=== PATIENT | female | born 1945 | race Caucasian/White ===

== ENCOUNTER 2017-04-02 12:41 | Emergency (ER) | payer OTHER ==
[~2017-04-02 12:41] MED LIST: ASPIRIN81 M1 PO; ATORVASTATIN CA10 MG PO; CARDIZEM C1 PO; COQ-10100 MG PO; FENOFIBRATE160 MG PO; FISH OIL1200 MG PO; FLAXSEED OIL1000 MG PO; MULTIPLE VITAMIN PO; PREMARIN0.9 M1 PO; PRINIVIL5 MG PO; VITAMIN D-31000 UNIT PO
--- NOTE | 2017-04-02 13:46 | DIAGNOSTIC IMAGING REPORT ---
PROCEDURE: XR CHEST 1 VIEW INDICATION: PALPITATIONS TECHNIQUE: Portable AP view 01:19 p.m. COMPARISON: None. FINDINGS: Lungs are clear. Heart and mediastinum are normal. Thorax is normal. No significant interval change IMPRESSION: 1. Negative chest.
--- NOTE | 2017-04-02 15:51 | ED NURSING NOTES ---
Clinical Report - Nurses [facility] [address] [place] [address] 04/02/2017 12:42 Patient: INGRIS DURBIN TRIAGE Triage time 12:48 Apr 02 2017. Chief Complaint: (rapid heart rate). Alert. No acute distress. ANATOLY COMA SCORE: Anatoly Coma Scale: 15- eyes open spontaneously (4); best verbal response- oriented x 4 (5); best motor response- obeys commands (6). --12:52 Leida Smallwood R.N. 12:48 04/02/17. BP: 155/72. HR: 142. RR: 12. O2 saturation: 100%. Temp: 97.4 F. Pain level now: 0/10. --12:52 Leida Smallwood R.N. Weight: 99.7 kg stated. Height/Length: 70 inches Per Patient. BMI: 31.5. --12:51 Leida Smallwood R.N. Medications Aspirin Childrens Oral (Tablet Chewable 81 mg) 1 tablet, BID. Atorvastatin Calcium Oral (Tablet 10 mg) 1 tablet, daily. Co Q 10 Oral (Capsule 100 mg) 1 capsule, daily. Fenofibrate Oral (Tablet 160 mg) 1 tablet, daily as needed. Fish Oil Oral (Capsule Delayed Release 1200 mg) 1 capsule, BID. Flaxseed Oil Oral 1400 mg , daily. Lisinopril Oral 10 mg, daily. Multiple Vitamin Oral, daily. Premarin Vaginal 0.150, daily. Vitamin D Oral 4000 mg, BID. --12:49 Leida Smallwood R.N. Cartia XT Oral (Capsule Extended Release 24 Hour 180 mg) 1 capsule, daily. --13:13 Leida Smallwood R.N. The following entry was struck and corrected by Ledia Smallwood R.N., 13:18 (04/02/17) Reason for correction - other(correction). <<STRICKEN ENTRY-- Vitamin D Oral. --12:49 Leida Smallwood R.N. --END STRIKE>> The following entry was struck and corrected by Leida Smallwood R.N., 13:17 (04/02/17) Reason for correction - other(correction). <<[facility] ENTRY-- Premarin Vaginal. --12:49 Leida Smallwood R.N. --END STRIKE>> The following entry was struck and corrected by Leida Smallwood R.N., 13:16 (04/02/17) Reason for correction - other(correction). <<[facility] ENTRY-- Multiple Vitamin Oral. --12:49 Leida Smallwood R.N. --END STRIKE>> The following entry was struck and corrected by Leida Smallwood R.N., 13:16 (04/02/17) Reason for correction - other(correction). <<[facility] ENTRY-- Lisinopril Oral. --12:49 Leida Smallwood R.N. --END STRIKE>> The following entry was struck and corrected by Leida Smallwood R.N., 13:16 (04/02/17) Reason for correction - other(correction). <<[facility] ENTRY-- Flaxseed Oil Oral. --12:49 Leida Smallwood R.N. --END STRIKE>> The following entry was struck and corrected by Leida Smallwood R.N., 13:16 (04/02/17) Reason for correction - other(correction). <<[facility] ENTRY-- Fish Oil Oral. --12:49 Leida Smallwood R.NNaina --END STRIKE>> The following entry was struck and corrected by Leida Smallwood R.N., 13:15 (04/02/17) Reason for correction - other(correction). <<[facility] ENTRY-- Fenofibrate Oral. --12:49 Leida Smallwood R.NNaina --END STRIKE>> The following entry was struck and corrected by Leida Smallwood R.N., 13:15 (04/02/17) Reason for correction - other(correction). <<[facility] ENTRY-- Co Q 10 Oral. --12:49 Leida Smallwood R.N. --END STRIKE>> The following entry was struck and corrected by Leida Smallwood R.N., 13:15 (04/02/17) Reason for correction - other(correction). <<[facility] ENTRY-- Cartia XT Oral. --13:13 Leida Smallwood R.N. --END STRIKE>> The following entry was struck and corrected by Leida Smallwood R.N., 13:14 (04/02/17) Reason for correction - other(correction). <<[facility] ENTRY-- Atorvastatin Calcium Oral. --12:49 Leida Smallwood R.N. --END STRIKE>> The following entry was struck and corrected by Leida Smallwood R.N., 13:14 (04/02/17) Reason for correction - other(correction). <<[facility] ENTRY-- Aspirin Childrens Oral. --12:49 Leida Smallwood R.N. --END STRIKE>>. Allergies None. --12:49 Leida Smallwood R.N. History Arrived by private vehicle. Historian: patient. Accompanied by family. This started just prior to arrival. She has had difficulty breathing. 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 SOCIAL HX: Never smoker. No alcohol use or drug use. No infectious disease exposure. SELF HARM ASSESSMENT: A self harm assessment was performed. The patient answered "no" to the question "Do you have thoughts of harming or killing yourself?". FALL RISK ASSESSMENT: Fall risk assessment completed. No fall risk identified. NUTRITIONAL RISK ASSESSMENT: The nutritional risk assessment revealed no deficiencies. FUNCTIONAL ASSESSMENT: Functional assessment: no impairments noted. LEARNING NEEDS ASSESSMENT: The learning needs assessment revealed no barriers. ABUSE ASSESSMENT: Abuse assessment: The patient was asked "Do you feel safe in your home?". SKIN INTEGRITY ASSESSMENT: Skin integrity risk assessment completed. No skin integrity risk identified. --12:52 Leida Smallwood R.N. PROBLEMS: Atrial Flutter. Hypercholesterolemia. Hypertension. --12:49 Leida Smallwood R.N. ADDITIONAL SURGERIES: Appendectomy. Carpal Tunnel Surgery. Shoulder Surgery. Tonsillectomy. --12:49 Leida Smallwood R.N. PHYSICAL ASSESSMENT GENERAL / NEURO / PSYCH: Alert. Oriented X 4. Appears anxious. RESPIRATORY: Mild respiratory distress. The patient can speak in full sentences. Chest nontender. CVS: Cardiac rhythm: sinus tachycardia. Capillary refill less than 2 seconds. GI / : Abdomen soft and nontender. SKIN: Skin is warm and dry. --12:52 Leida Smallwood R.N. NURSING PROGRESS NOTES 12:53 04/02/2017 Site #1 started via IV in the left hand with an 20g angiocath, with aseptic technique and good blood return; one attempt. Blood drawn: rainbow set. Labeled in the presence of the patient and sent to the lab. Saline lock flushed with 10 mL saline. --12:53 Leida Smallwood R.N. Oxygen administered. EKG time: (1255 PM). EKG was performed by a tech and shown to the PRINT LINE FEEDER. Head of bed elevated. Patient identifiers checked. Call light placed in reach. Side rails up x 2. Bed placed in lowest position. Brakes of bed on. --12:54 Leida Smallwood R.N. 12:54 04/02/17. BP: 135/83. HR: 145. RR: 20. O2 saturation: 100%. --12:55 Leida Smallwood R.N. 13:01 04/02/2017 Started bag #1 1000 mL IV Fluids IV NS (Saline); at 1000 mL/hr over 1 hour(s) via site #1 via IV pump. Allergies verified and confirmed 5 rights. IV patency established. IV site checked: no pain, redness, or swelling. IV flushed thoroughly pre- and post-medication administration. --13:06 Leida Smallwood R.N. 13:05 04/02/2017 Cardizem IVP 25 mg given over 3 minute(s) via site #1. Allergies verified and confirmed 5 rights. IV patency established. IV site checked: no pain, redness, or swelling. IV flushed thoroughly pre- and post-medication administration. --13:05 Leida Smallwood R.N. EKG time: (1310 13:Apr 02 2017). EKG was performed by a tech and shown to the PRINT LINE FEEDER. --13:08 Leida Smallwood R.N. 13:07 04/02/17. BP: 121/62. HR: 80. RR: 16. O2 saturation: 100%. --13:08 Leida Smallwood R.N. 13:36 04/02/17. BP: 123/55. HR: 77. RR: 19. O2 saturation: 99%. Pain level now: 0/10. --13:37 Leida Smallwood R.N. The patient is calm and resting quietly. Overall patient status is improved- she states feels better. --13:37 Leida Smallwood R.N. 14:07 04/02/2017 IV Fluids IV NS Discontinued: bag #1 infused. Total amount infused: 1000 mL. IV patency established. IV site checked: no pain, redness, or swelling. IV flushed thoroughly. --14:07 Leida Smallwood R.N. 14:08 04/02/2017 Aspirin PO 325 mg given. Allergies verified and confirmed 5 rights. --14:08 Leida Smallwood R.N. 14:06 04/02/17. BP: 124/56. HR: 97. RR: 20. O2 saturation: 100%. Pain level now: 0/10. --14:09 Leida Smallwood R.N. The patient is calm and resting quietly. Overall patient status is improved- she states feels better. --14:58 Leida Smallwood R.N. 14:58 04/02/17. BP: 130/57. HR: 71. RR: 22. O2 saturation: 99%. Pain level now: 0/10. --14:58 Leida Smallwood R.N. 15:15 04/02/17. BP: 140/66. HR: 73. RR: 18. O2 saturation: 100%. Pain level now: 0/10. --15:15 Leida Smallwood R.N. DISPOSITION / DISCHARGE Condition at departure: improved. No learning barriers present. Reviewed medication(s) side effects, precautions, dosing and course information. Prescription(s) given to the patient. Reviewed referral to a certified nurse operating room for followup. Patient verbalized understanding. Written instructions provided in Uzbek. The patient was discharged home and accompanied by spouse. She left the Emergency Department ambulatory and via private vehicle. Spouse driving. FALL RISK ASSESSMENT: Fall risk assessment completed. No fall risk identified. --16:02 Leida Smallwood R.N. 15:59 04/02/17. BP: 125/61. HR: 83. RR: 18. O2 saturation: 99%. Pain level now: 010. --16:02 Leida Smallwodo R.N. Departure time: 16:Apr 02 2017. --16:06 Leida Smallwood R.N. Locked/Released at 04/02/2017 21:02 by Leida Smallwood R.N.
--- NOTE | 2017-04-02 15:51 | ED ORDER SUMMARY ---
..... Patient: INGRIS DURBIN OrderSheet [facility] VisitID: [id number] [address] [place] [address] 72y, F Registration Date/Time: 04/02/2017 ORDER SHEET Weight: 99.7 kg (stated) Allergies: None GENERAL ORDERS: Finishing Range Supervisor (Continuous) (12:58 04/02/2017 HBivens A.R.N.P.) (13:09 KKnebel R.N.) Chest 1V Urgent (12:58 04/02/2017 HBivens A.R.N.P.) (Ack 13:02 [place]) (13:31 Hitesh) CBC w Diff Urgent (12:58 04/02/2017 HBivens A.R.N.P.) (Ack 13:02 RKaruga) (13:09 KKnebel R.N.) CMP Urgent (12:58 04/02/2017 HBivens A.R.N.P.) (Ack 13:02 RKaruga) (13:09 KKnebel R.N.) CPK Urgent (12:58 04/02/2017 HBivens A.R.N.P.) (Ack 13:02 RKaruga) (13:09 KKnebel R.N.) Troponin-I Urgent (12:58 04/02/2017 HBivens A.R.N.P.) (Ack 13:02 RKaruga) (13:09 KKnebel R.N.) Oxygen (2 L/min) (NC) (12:58 04/02/2017 HBivens A.R.N.P.) (13:09 KKnebel R.N.) EKG - ER Stat (12:58 04/02/2017 HBivens A.R.N.P.) (13:01 RKaruga) EKG - ER Stat (12:58 04/02/2017 HBivens A.R.N.P.) (13:01 RKaruga) PTT Urgent (13:11 04/02/2017 HBivens A.R.N.P.) (Ack 13:25 DIAMONDaruga) (14:05 MWinterer R.N.) PT with INR Urgent (13:11 04/02/2017 HBivens A.R.N.P.) ([facility]ck 13:[facility] (14:05 MWinterer R.N.) EKG - ER Stat (13:41 04/02/2017 HBivens A.R.N.P.) (Ack 13:56 [facility] (14:05 MWinterer R.N.) MEDICATION ORDERS: Aspirin PO 325 mg (Do not crush or chew, NOW) (13:11 04/02/2017 HBivens A.R.N.P.) (14:08 KKnebel R.N.) IV FLUIDS: IV NS : initial bolus 1000 mL (1000 mL/hr), then none - (NOW) (12:57 04/02/2017 HBivens A.R.N.P.) (13:06 KKnebel R.N.) Cardizem IV 25 mg (HIGH ALERT MEDICATION, NOW) (12:58 04/02/2017 HBivens A.R.N.P.) (13:05 KKnebel R.N.) IV Saline Lock (12:58 04/02/2017 HBivens A.R.N.P.) (13:07 KKnebel R.N.) ORDER SHEET NOTES: [Electronically signed by Elba Plata ANainaR.N.P. (17:33 04/02/2017)] [Electronically signed by Leida Smallwood R.N. (21:02 04/02/2017)] [Electronically locked/signed by Leida Smallwood R.N. (21:02 04/02/2017)]
--- NOTE | 2017-04-02 15:51 | ED NURSING NOTES ---
Clinical Report - Nurses [facility] [address] [place] [address] 04/02/2017 12:42 Patient: INGRIS DURBIN TRIAGE Triage time 12:48 Apr 02 2017. Chief Complaint: (rapid heart rate). Alert. No acute distress. ANATOLY COMA SCORE: Anatoly Coma Scale: 15- eyes open spontaneously (4); best verbal response- oriented x 4 (5); best motor response- obeys commands (6). --12:52 Leida Smallwood R.N. 12:48 04/02/17. BP: 155/72. HR: 142. RR: 12. O2 saturation: 100%. Temp: 97.4 F. Pain level now: 0/10. --12:52 Leida Smallwood R.N. Weight: 99.7 kg stated. Height/Length: 70 inches Per Patient. BMI: 31.5. --12:51 Leida Smallwood R.N. Medications Aspirin Childrens Oral (Tablet Chewable 81 mg) 1 tablet, BID. Atorvastatin Calcium Oral (Tablet 10 mg) 1 tablet, daily. Co Q 10 Oral (Capsule 100 mg) 1 capsule, daily. Fenofibrate Oral (Tablet 160 mg) 1 tablet, daily as needed. Fish Oil Oral (Capsule Delayed Release 1200 mg) 1 capsule, BID. Flaxseed Oil Oral 1400 mg , daily. Lisinopril Oral 10 mg, daily. Multiple Vitamin Oral, daily. Premarin Vaginal 0.150, daily. Vitamin D Oral 4000 mg, BID. --12:49 Leida Smallwood R.N. Cartia XT Oral (Capsule Extended Release 24 Hour 180 mg) 1 capsule, daily. --13:13 Leida Smallwood R.N. The following entry was struck and corrected by Leida Smallwood R.N., 13:18 (04/02/17) Reason for correction - other(correction). <<STRICKEN ENTRY-- Vitamin D Oral. --12:49 Leida Smallwood R.N. --END STRIKE>> The following entry was struck and corrected by Leida Smallwood R.N., 13:17 (04/02/17) Reason for correction - other(correction). <<[facility] ENTRY-- Premarin Vaginal. --12:49 Leida Smallwood R.N. --END STRIKE>> The following entry was struck and corrected by Leida Smallwood R.N., 13:16 (04/02/17) Reason for correction - other(correction). <<[facility] ENTRY-- Multiple Vitamin Oral. --12:49 Leida Smallwood R.N. --END STRIKE>> The following entry was struck and corrected by Leida Smallwood R.N., 13:16 (04/02/17) Reason for correction - other(correction). <<[facility] ENTRY-- Lisinopril Oral. --12:49 Leida Smallwood R.N. --END STRIKE>> The following entry was struck and corrected by Leida Smallwood R.N., 13:16 (04/02/17) Reason for correction - other(correction). <<[facility] ENTRY-- Flaxseed Oil Oral. --12:49 Leida Smallwood R.N. --END STRIKE>> The following entry was struck and corrected by Leida Smallwood R.N., 13:16 (04/02/17) Reason for correction - other(correction). <<[facility] ENTRY-- Fish Oil Oral. --12:49 Leida Smallwood R.NNaina --END STRIKE>> The following entry was struck and corrected by Leida Smallwood R.N., 13:15 (04/02/17) Reason for correction - other(correction). <<[facility] ENTRY-- Fenofibrate Oral. --12:49 Leida Smallwood R.NNaina --END STRIKE>> The following entry was struck and corrected by Leida Smallwood R.N., 13:15 (04/02/17) Reason for correction - other(correction). <<[facility] ENTRY-- Co Q 10 Oral. --12:49 Leida Smallwood R.N. --END STRIKE>> The following entry was struck and corrected by Leida Smallwood R.N., 13:15 (04/02/17) Reason for correction - other(correction). <<[facility] ENTRY-- Cartia XT Oral. --13:13 Leida Smallwood R.N. --END STRIKE>> The following entry was struck and corrected by Leida Smallwood R.N., 13:14 (04/02/17) Reason for correction - other(correction). <<[facility] ENTRY-- Atorvastatin Calcium Oral. --12:49 Leida Smallwood R.N. --END STRIKE>> The following entry was struck and corrected by Leida Smallwood R.N., 13:14 (04/02/17) Reason for correction - other(correction). <<[facility] ENTRY-- Aspirin Childrens Oral. --12:49 Leida Smallwood R.N. --END STRIKE>>. Allergies None. --12:49 Leida Smallwood R.N. History Arrived by private vehicle. Historian: patient. Accompanied by family. This started just prior to arrival. She has had difficulty breathing. 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 SOCIAL HX: Never smoker. No alcohol use or drug use. No infectious disease exposure. SELF HARM ASSESSMENT: A self harm assessment was performed. The patient answered "no" to the question "Do you have thoughts of harming or killing yourself?". FALL RISK ASSESSMENT: Fall risk assessment completed. No fall risk identified. NUTRITIONAL RISK ASSESSMENT: The nutritional risk assessment revealed no deficiencies. FUNCTIONAL ASSESSMENT: Functional assessment: no impairments noted. LEARNING NEEDS ASSESSMENT: The learning needs assessment revealed no barriers. ABUSE ASSESSMENT: Abuse assessment: The patient was asked "Do you feel safe in your home?". SKIN INTEGRITY ASSESSMENT: Skin integrity risk assessment completed. No skin integrity risk identified. --12:52 Leida Smallwood R.N. PROBLEMS: Atrial Flutter. Hypercholesterolemia. Hypertension. --12:49 Leida Smallwood R.N. ADDITIONAL SURGERIES: Appendectomy. Carpal Tunnel Surgery. Shoulder Surgery. Tonsillectomy. --12:49 Leida Smallwood R.N. PHYSICAL ASSESSMENT GENERAL / NEURO / PSYCH: Alert. Oriented X 4. Appears anxious. RESPIRATORY: Mild respiratory distress. The patient can speak in full sentences. Chest nontender. CVS: Cardiac rhythm: sinus tachycardia. Capillary refill less than 2 seconds. GI / : Abdomen soft and nontender. SKIN: Skin is warm and dry. --12:52 Leida Smallwood R.N. NURSING PROGRESS NOTES 12:53 04/02/2017 Site #1 started via IV in the left hand with an 20g angiocath, with aseptic technique and good blood return; one attempt. Blood drawn: rainbow set. Labeled in the presence of the patient and sent to the lab. Saline lock flushed with 10 mL saline. --12:53 Leida Smallwood R.N. Oxygen administered. EKG time: (1255 PM). EKG was performed by a tech and shown to the FIRE APPARATUS ENGINEER. Head of bed elevated. Patient identifiers checked. Call light placed in reach. Side rails up x 2. Bed placed in lowest position. Brakes of bed on. --12:54 Leida Smallwood R.N. 12:54 04/02/17. BP: 135/83. HR: 145. RR: 20. O2 saturation: 100%. --12:55 Leida Smallwood R.N. 13:01 04/02/2017 Started bag #1 1000 mL IV Fluids IV NS (Saline); at 1000 mL/hr over 1 hour(s) via site #1 via IV pump. Allergies verified and confirmed 5 rights. IV patency established. IV site checked: no pain, redness, or swelling. IV flushed thoroughly pre- and post-medication administration. --13:06 Leida Smallwood R.N. 13:05 04/02/2017 Cardizem IVP 25 mg given over 3 minute(s) via site #1. Allergies verified and confirmed 5 rights. IV patency established. IV site checked: no pain, redness, or swelling. IV flushed thoroughly pre- and post-medication administration. --13:05 Leida Smallwood R.N. EKG time: (1310 13:Apr 02 2017). EKG was performed by a tech and shown to the FIRE APPARATUS ENGINEER. --13:08 Leida Smallwood R.N. 13:07 04/02/17. BP: 121/62. HR: 80. RR: 16. O2 saturation: 100%. --13:08 Leida Smallwood R.N. 13:36 04/02/17. BP: 123/55. HR: 77. RR: 19. O2 saturation: 99%. Pain level now: 0/10. --13:37 Leida Smallwood R.N. The patient is calm and resting quietly. Overall patient status is improved- she states feels better. --13:37 Leida Smallwood R.N. 14:07 04/02/2017 IV Fluids IV NS Discontinued: bag #1 infused. Total amount infused: 1000 mL. IV patency established. IV site checked: no pain, redness, or swelling. IV flushed thoroughly. --14:07 Leida Smallwood R.N. 14:08 04/02/2017 Aspirin PO 325 mg given. Allergies verified and confirmed 5 rights. --14:08 Leida Smallwood R.N. 14:06 04/02/17. BP: 124/56. HR: 97. RR: 20. O2 saturation: 100%. Pain level now: 0/10. --14:09 Leida Smallwood R.N. The patient is calm and resting quietly. Overall patient status is improved- she states feels better. --14:58 Leida Smallwood R.N. 14:58 04/02/17. BP: 130/57. HR: 71. RR: 22. O2 saturation: 99%. Pain level now: 0/10. --14:58 Leida Smallwood R.N. 15:15 04/02/17. BP: 140/66. HR: 73. RR: 18. O2 saturation: 100%. Pain level now: 0/10. --15:15 Leida Smallwood R.N. DISPOSITION / DISCHARGE Condition at departure: improved. No learning barriers present. Reviewed medication(s) side effects, precautions, dosing and course information. Prescription(s) given to the patient. Reviewed referral to a amusement park entertainer for followup. Patient verbalized understanding. Written instructions provided in Yi. The patient was discharged home and accompanied by spouse. She left the Emergency Department ambulatory and via private vehicle. Spouse driving. FALL RISK ASSESSMENT: Fall risk assessment completed. No fall risk identified. --16:02 Leida Smallwood R.N. 15:59 04/02/17. BP: 125/61. HR: 83. RR: 18. O2 saturation: 99%. Pain level now: 010. --16:02 Leida Smallwood R.N. Departure time: 16:Apr 02 2017. --16:06 Leida Smallwood R.N. Locked/Released at 04/02/2017 21:02 by Leida Smallwood R.N.
--- NOTE | 2017-04-02 15:51 | ED CLINICAL REPORT ---
Clinical Report - Physicians/Mid Levels [facility] [address] [place] [address] 04/02/2017 12:42 Patient: INGRIS DURBIN Time Seen: 1248; upon arrival, initial patient contact, initial documentation, patient care assumed. Arrived- By private vehicle. Historian- patient. HISTORY OF PRESENT ILLNESS Chief Complaint: PALPITATIONS. Modifying factors. Not worsened by anything. Not relieved by anything. It is described as a fast and pounding heart beat and missing beats. This started just prior to arrival and is still present. (sitting in car). Onset during rest. It was abrupt in onset and has been constant. No chest pain or discomfort, sweating episodes, fainting episodes or dizziness. No tingling or muscle spasms. She has had difficulty breathing. ( pcp Jennifer Covington in [facility], Customer Service Leader at [place]). 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 Similar symptoms previously: Once, worse. ( had first episode back in Sep, [facility] , f/u with recorder helper gravity prospecting, in Nov, Dr Hauser, placed on cartia, had discussion whether to do procedure, possible ablation, did not want to do ablation and didn't like what said, so saw 2nd recorder helper gravity prospecting, Dr Fritz, has not had any more episodes since, occasional missed beat, sometimes at night, but not this). Recent medical care: Not recently seen/assessed. REVIEW OF SYSTEMS No orthopnea or calf pain. All systems otherwise negative, except as recorded above. PAST HISTORY See nurses notes. PROBLEMS: Atrial Flutter. Hypercholesterolemia. Hypertension. --12:49 Leida Smallwood R.N. ADDITIONAL SURGERIES: Appendectomy. Carpal Tunnel Surgery. Shoulder Surgery. Tonsillectomy. --12:49 Leida Smallwood R.N. SOCIAL HISTORY Never smoker. No alcohol use or drug use. No recent travel. Is a local resident. She lives with spouse. FAMILY HISTORY Negative. ADDITIONAL NOTES The nursing notes have been reviewed with agreement regarding the chief complaint, HPI, ROS, PMH and patient medications and allergies. PHYSICAL EXAM Vital Signs: 04/02/2017 12:48 BP: 155/72. HR: 142. RR: 12. O2 saturation: 100%. Temp: 97.4 F. Pain level now: 0/10. Have been reviewed as abnormal and appear to be correct. Blood pressure normal. Tachycardic. Respiratory rate normal. Temperature normal. Oxygen saturation normal. Appearance: Alert. Oriented X3. No acute distress. Eyes: Pupils equal, round and reactive to light. Eyes normal inspection. Neck: Normal inspection. Neck supple. CVS: Heart rate / rhythm abnormal. Tachycardia. Abnormal rhythm, which is tachycardic and regular (ventricular rate = 142). Heart sounds abnormal. Pulses normal. Respiratory: No respiratory distress. Breath sounds normal. Chest nontender. Abdomen: Mildly obese. Back: Normal external inspection. Skin: Skin warm and dry. Normal skin color. No rash. Normal skin turgor. Extremities: Extremities exhibit normal ROM. No lower extremity edema. Neuro: Oriented X 3. No motor deficit. No sensory deficit. LABS, X-RAYS, AND EKG EKG: EKG time: (1255). No acute ischemia. Atrial flutter with 2 to 1 conduction (atrial rate). Tachycardia (141). Normal EKG. The study has been interpreted contemporaneously by me (reviewed by dr escobedo). The EKG appears to be a good tracing. Interpretation time: 1255. EKG #2: Performed. EKG time: (1310). No acute process. No acute ischemia. Normal EKG. Rate: 81. The study has been interpreted contemporaneously by me (and reviewed by dr escobedo). The EKG appears to be a good tracing. Interpretation time: 1310. EKG #3: EKG time: (1356). No acute process. No acute ischemia. Rate: 83. First-degree heart block and unidentified rhythm present. The study has been interpreted contemporaneously by me (and Dr Escobedo). The EKG appears to be a good tracing. Interpretation time: 1356. Chest X-ray: Normal Chest X-Ray. (IMPRESSION: 1. Negative chest. Electronically Final signed by:Mark Chung MD 04/02/2017 1:46:45 PM). The X-rays were interpreted by the radiologist and contemporaneously by me. Laboratory Tests: CBC w Diff: (DAWIT: 04/02/2017 12:50) ( [facility] 04/02/2017 13:06) Final results Test Result Flag Units (Reference) WHITE BLOOD COUNT 5.7 K/uL (4.5-11.5) RED BLOOD COUNT 4.27 M/uL (4.00-5.20) HEMOGLOBIN 13.5 gm/dL (12.0-16.0) HEMATOCRIT 38.3 % (36.0-46.0) MEAN CELL VOLUME 90 fL (80-100) MEAN CORPUSCULAR HGB 32 pg (26-34) MEAN CORPUSCULAR HGB CONC 35 g/dL (31-37) RED CELL DISTRIBUTION WIDTH 12.4 % (11.6-14.8) PLATELET COUNT 240 K/uL (150-400) NEUTROPHIL % 66.5 % (50-75) LYMPH % 22.8 L % (25-40) MONO % 8.7 % (3-14) EOSINOPHIL % 1.7 % (0-4) BASOPHIL % 0.3 % (0-2) PT with INR: (DAWIT: 04/02/2017 12:50) ( [facility] 04/02/2017 13:42) Final results Test Result Flag Units (Reference) INR 1.0 (0.8-1.2) Low Intensity Therapy: INR 1.5-2.0 PT range 18.5-23.1Mod.Intensity Therapy: INR 2.0-3.0 PT range 23.1-31.5High Intensity Therapy: INR 2.5-3.5 PT range 27.4-35.5High Intensity Therapy 2: INR 3.0-4.0 PT range 31.5-39.3 APTT 30 SECONDS (24-34) CMP: (DAWIT: 04/02/2017 12:50) ( [facility] 04/02/2017 13:23) Final results Test Result Flag Units (Reference) GLUCOSE 105 mg/dL (70-110) BUN 26 H mg/dL (7-18) CREATININE 1.5 H mg/dL (0.6-1.3) Estimated GFR 36.49 mL/min Estimated GFR- 44.22 mL/min Note: Persistent reduction over 3 months in eGFR<60 mL/min/1.73 m2 defines CKD. Patients with eGFR values>=60 mL/min/1.73 m2 may also have CKD if evidence ofpersistent proteinuria. Additional information may be foundat www.kidney.org. SODIUM 141 mmol/L (136-145) POTASSIUM 4.0 mmol/L (3.5-5.1) CHLORIDE 103 mmol/L (98-107) CARBON DIOXIDE 23 mmol/L (21-32) CALCIUM 9.5 mg/dL (8.5-10.1) TOTAL PROTEIN 7.7 g/dL (6.4-8.2) ALBUMIN 4.0 g/dL (3.3-5.0) BILIRUBIN, TOTAL 0.5 mg/dL (0.0-1.0) ALKALINE PHOSPHATASE 64 U/L (46-116) AST (SGOT) 23 U/L (15-37) ALT (SGPT) 33 U/L (12-78) CPK 88 U/L (24-260) TROPONIN I 0.06 ng/mL (0.00-1.5) TROPONIN REFERENCE RANGE:<0.1 NEGATIVE0.1-1.5 INDETERMINANT>1.5 POSITIVE . PROGRESS AND PROCEDURES Peripheral IV Placement: Performed by me. IV placed in the right antecubital space with an 18g angiocath with aseptic technique and good blood return; one attempt. Saline lock flushed with 5 mL saline. Course of Care: 13:41 04/02/17. nurse reporting hr is 77, but rhythm looks different to her on monitor, another ekg ordered 1345. pt resting quietly, nad, nsr on monitor, vs stable 1430. Spoke to Customer Service Leader Dr Davenport at [facility], discussed pt's case with her, she asked us to fax her the ekgs, she would review and get back with us Asked observation nurse to fax the ekgs 15:15 04/02/17. pt walked around dept by [employer], no cp, no sob, no trouble breathing, pt back on cardiac catheterization technician, nsr seen so far 1515. Spoke to Dr Hauser, she reviewed the ekg's, agreed with my assessment, was in 2:1 aflutter, converted to nsr and occasional pvc, ok, to dc home, wants to see pt in her office tuesday, wants to increase the cartia from 180mg qd to 240mg qd, increase the asa to 325mg qd, pt to check with her insurance company re which blood thinner they will pay for had long discussion with pt afterwards to go over Dr Hauser's dc plan, pt still reluctant re ablation procedure, explained aflutter that does not convert ends up being paced and can be fatal, also risk of blood clot from heart being in irregular rhythm, pt encouraged to think everything over and call [employer]. 04/02/2017 13:36 BP: 123/55. HR: 77. RR: 19. O2 saturation: 99%. Pain level now: 0/10. Vital Signs: have been reviewed as normal and appear to be correct. Critical care performed (60 minutes). Time includes: direct patient care, patient reassessment, interpretation of data (laboratory data, pulse oximetry, chest xrays and prior electrocardiograms), review of patient's medical records, medical consultation and documentation of patient care- see progress notes. Procedures included in critical care time: peripheral IV placement. Patient counseled in person regarding the patient's stable condition, test results, diagnosis and need for additional testing. Differential Diagnosis: Other possible considerations: svt, afib, aflutter, substance abuse, mi. Above considerations are based on history, physical exam, reassessment, laboratory data, X-Ray data and EKG. Differential diagnosis was discussed with patient. Disposition: Discharged home in good and improved condition (15:51). Condition: good and stable. CLINICAL IMPRESSION Chronic atrial flutter. The patient does not have one or more high risk factors and/or two or more moderate risk factors for thromboembolism. The patient is prescribed warfarin or another FDA approved anticoagulant. INSTRUCTIONS (increase Aspirin to 325mg daily, as discussed, check with insurance regarding blood thinners Blood thinners: Elaquil 500mg twice daily Xarelto 20mg daily Prudaxa 150mg twice daily). Warnings: GENERAL WARNINGS: Return or contact your physician immediately if your condition worsens or changes unexpectedly, if not improving as expected, or if other problems arise. SPECIFICALLY, return if you develop chest, neck, jaw, shoulder, arm, or back pain, difficulty breathing, a fluttering sensation in your chest, lightheadedness, fainting, excessive fatigue, or sudden sweating. Prescription Medications: Cartia 240mg po #15 1 tablet qd no refills. Understanding of the discharge instructions verbalized by patient. Follow-up with: Anny Hauser MD, Cardiology, , [facility], [address] [place] [address], [facility], [id number] Follow up Tuesday even if well. Call for an appointment. Summary of care provided to patient. (Electronically signed by Elba Plata A.R.N.P. 04/02/2017 17:33)
--- NOTE | 2017-04-02 15:51 | ED ORDER SUMMARY ---
..... Patient: INGRIS DURBIN OrderSheet [facility] VisitID: [id number] [address] [place] [address] 72y, F Registration Date/Time: 04/02/2017 ORDER SHEET Weight: 99.7 kg (stated) Allergies: None GENERAL ORDERS: Brood Station Manager (Continuous) (12:58 04/02/2017 HBivens A.R.N.P.) (13:09 KKnebel R.N.) Chest 1V Urgent (12:58 04/02/2017 HBivens A.R.N.P.) (Ack 13:02 [place]) (13:31 Hitesh) CBC w Diff Urgent (12:58 04/02/2017 HBivens A.R.N.P.) (Ack 13:02 RKaruga) (13:09 KKnebel R.N.) CMP Urgent (12:58 04/02/2017 HBivens A.R.N.P.) (Ack 13:02 RKaruga) (13:09 KKnebel R.N.) CPK Urgent (12:58 04/02/2017 HBivens A.R.N.P.) (Ack 13:02 RKaruga) (13:09 KKnebel R.N.) Troponin-I Urgent (12:58 04/02/2017 HBivens A.R.N.P.) (Ack 13:02 RKaruga) (13:09 KKnebel R.N.) Oxygen (2 L/min) (NC) (12:58 04/02/2017 HBivens A.R.N.P.) (13:09 KKnebel R.N.) EKG - ER Stat (12:58 04/02/2017 HBivens A.R.N.P.) (13:01 RKaruga) EKG - ER Stat (12:58 04/02/2017 HBivens A.R.N.P.) (13:01 RKaruga) PTT Urgent (13:11 04/02/2017 HBivens A.R.N.P.) (Ack 13:25 DIAMONDaruga) (14:05 MWinterer R.N.) PT with INR Urgent (13:11 04/02/2017 HBivens A.R.N.P.) [facility] (14:05 MWinterer R.N.) EKG - ER Stat (13:41 04/02/2017 HBivens A.R.N.P.) (Ack 13:56 [facility]) (14:05 MWinterer R.N.) MEDICATION ORDERS: Aspirin PO 325 mg (Do not crush or chew, NOW) (13:11 04/02/2017 HBivens A.R.N.P.) (14:08 KKnebel R.N.) IV FLUIDS: IV NS : initial bolus 1000 mL (1000 mL/hr), then none - (NOW) (12:57 04/02/2017 HBivens A.R.N.P.) (13:06 KKnebel R.N.) Cardizem IV 25 mg (HIGH ALERT MEDICATION, NOW) (12:58 04/02/2017 HBivens A.R.N.P.) (13:05 KKnebel R.N.) IV Saline Lock (12:58 04/02/2017 HBivens A.R.N.P.) (13:07 KKnebel R.N.) ORDER SHEET NOTES: [Electronically signed by Elba Plata ANainaR.N.P. (17:33 04/02/2017)] [Electronically signed by Leida Smallwood R.N. (21:02 04/02/2017)] [Electronically locked/signed by Leida Smallwood R.N. (21:02 04/02/2017)]
--- NOTE | 2017-04-02 15:51 | ED CLINICAL REPORT ---
Clinical Report - Physicians/Mid Levels [facility] [address] [place] [address] 04/02/2017 12:42 Patient: INGRIS DURBIN Time Seen: 1248; upon arrival, initial patient contact, initial documentation, patient care assumed. Arrived- By private vehicle. Historian- patient. HISTORY OF PRESENT ILLNESS Chief Complaint: PALPITATIONS. Modifying factors. Not worsened by anything. Not relieved by anything. It is described as a fast and pounding heart beat and missing beats. This started just prior to arrival and is still present. (sitting in car). Onset during rest. It was abrupt in onset and has been constant. No chest pain or discomfort, sweating episodes, fainting episodes or dizziness. No tingling or muscle spasms. She has had difficulty breathing. ( pcp Jennifer Covington in [facility], Wheel Molder at [place]). 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 Similar symptoms previously: Once, worse. ( had first episode back in Sep, admitted on [facility] , f/u with carton making machinist, in Nov, Dr Hauser, placed on cartia, had discussion whether to do procedure, possible ablation, did not want to do ablation and didn't like what said, so saw 2nd carton making machinist, Dr Fritz, has not had any more episodes since, occasional missed beat, sometimes at night, but not this). Recent medical care: Not recently seen/assessed. REVIEW OF SYSTEMS No orthopnea or calf pain. All systems otherwise negative, except as recorded above. PAST HISTORY See nurses notes. PROBLEMS: Atrial Flutter. Hypercholesterolemia. Hypertension. --12:49 Leida Smallwood R.N. ADDITIONAL SURGERIES: Appendectomy. Carpal Tunnel Surgery. Shoulder Surgery. Tonsillectomy. --12:49 Leida Smallwood R.N. SOCIAL HISTORY Never smoker. No alcohol use or drug use. No recent travel. Is a local resident. She lives with spouse. FAMILY HISTORY Negative. ADDITIONAL NOTES The nursing notes have been reviewed with agreement regarding the chief complaint, HPI, ROS, PMH and patient medications and allergies. PHYSICAL EXAM Vital Signs: 04/02/2017 12:48 BP: 155/72. HR: 142. RR: 12. O2 saturation: 100%. Temp: 97.4 F. Pain level now: 0/10. Have been reviewed as abnormal and appear to be correct. Blood pressure normal. Tachycardic. Respiratory rate normal. Temperature normal. Oxygen saturation normal. Appearance: Alert. Oriented X3. No acute distress. Eyes: Pupils equal, round and reactive to light. Eyes normal inspection. Neck: Normal inspection. Neck supple. CVS: Heart rate / rhythm abnormal. Tachycardia. Abnormal rhythm, which is tachycardic and regular (ventricular rate = 142). Heart sounds abnormal. Pulses normal. Respiratory: No respiratory distress. Breath sounds normal. Chest nontender. Abdomen: Mildly obese. Back: Normal external inspection. Skin: Skin warm and dry. Normal skin color. No rash. Normal skin turgor. Extremities: Extremities exhibit normal ROM. No lower extremity edema. Neuro: Oriented X 3. No motor deficit. No sensory deficit. LABS, X-RAYS, AND EKG EKG: EKG time: (1255). No acute ischemia. Atrial flutter with 2 to 1 conduction (atrial rate). Tachycardia (141). Normal EKG. The study has been interpreted contemporaneously by me (reviewed by dr escobedo). The EKG appears to be a good tracing. Interpretation time: 1255. EKG #2: Performed. EKG time: (1310). No acute process. No acute ischemia. Normal EKG. Rate: 81. The study has been interpreted contemporaneously by me (and reviewed by dr escobedo). The EKG appears to be a good tracing. Interpretation time: 1310. EKG #3: EKG time: (1356). No acute process. No acute ischemia. Rate: 83. First-degree heart block and unidentified rhythm present. The study has been interpreted contemporaneously by me (and Dr Escobedo). The EKG appears to be a good tracing. Interpretation time: 1356. Chest X-ray: Normal Chest X-Ray. (IMPRESSION: 1. Negative chest. Electronically Final signed by:Mark Chung MD 04/02/2017 1:46:45 PM). The X-rays were interpreted by the radiologist and contemporaneously by me. Laboratory Tests: CBC w Diff: (DAWIT: 04/02/2017 12:50) ( [facility] 04/02/2017 13:06) Final results Test Result Flag Units (Reference) WHITE BLOOD COUNT 5.7 K/uL (4.5-11.5) RED BLOOD COUNT 4.27 M/uL (4.00-5.20) HEMOGLOBIN 13.5 gm/dL (12.0-16.0) HEMATOCRIT 38.3 % (36.0-46.0) MEAN CELL VOLUME 90 fL (80-100) MEAN CORPUSCULAR HGB 32 pg (26-34) MEAN CORPUSCULAR HGB CONC 35 g/dL (31-37) RED CELL DISTRIBUTION WIDTH 12.4 % (11.6-14.8) PLATELET COUNT 240 K/uL (150-400) NEUTROPHIL % 66.5 % (50-75) LYMPH % 22.8 L % (25-40) MONO % 8.7 % (3-14) EOSINOPHIL % 1.7 % (0-4) BASOPHIL % 0.3 % (0-2) PT with INR: (DAWIT: 04/02/2017 12:50) ( [facility] 04/02/2017 13:42) Final results Test Result Flag Units (Reference) INR 1.0 (0.8-1.2) Low Intensity Therapy: INR 1.5-2.0 PT range 18.5-23.1Mod.Intensity Therapy: INR 2.0-3.0 PT range 23.1-31.5High Intensity Therapy: INR 2.5-3.5 PT range 27.4-35.5High Intensity Therapy 2: INR 3.0-4.0 PT range 31.5-39.3 APTT 30 SECONDS (24-34) CMP: (DAWIT: 04/02/2017 12:50) ( [facility] 04/02/2017 13:23) Final results Test Result Flag Units (Reference) GLUCOSE 105 mg/dL (70-110) BUN 26 H mg/dL (7-18) CREATININE 1.5 H mg/dL (0.6-1.3) Estimated GFR 36.49 mL/min Estimated GFR- 44.22 mL/min Note: Persistent reduction over 3 months in eGFR<60 mL/min/1.73 m2 defines CKD. Patients with eGFR values>=60 mL/min/1.73 m2 may also have CKD if evidence ofpersistent proteinuria. Additional information may be foundat www.kidney.org. SODIUM 141 mmol/L (136-145) POTASSIUM 4.0 mmol/L (3.5-5.1) CHLORIDE 103 mmol/L (98-107) CARBON DIOXIDE 23 mmol/L (21-32) CALCIUM 9.5 mg/dL (8.5-10.1) TOTAL PROTEIN 7.7 g/dL (6.4-8.2) ALBUMIN 4.0 g/dL (3.3-5.0) BILIRUBIN, TOTAL 0.5 mg/dL (0.0-1.0) ALKALINE PHOSPHATASE 64 U/L (46-116) AST (SGOT) 23 U/L (15-37) ALT (SGPT) 33 U/L (12-78) CPK 88 U/L (24-260) TROPONIN I 0.06 ng/mL (0.00-1.5) TROPONIN REFERENCE RANGE:<0.1 NEGATIVE0.1-1.5 INDETERMINANT>1.5 POSITIVE . PROGRESS AND PROCEDURES Peripheral IV Placement: Performed by me. IV placed in the right antecubital space with an 18g angiocath with aseptic technique and good blood return; one attempt. Saline lock flushed with 5 mL saline. Course of Care: 13:41 04/02/17. nurse reporting hr is 77, but rhythm looks different to her on monitor, another ekg ordered 1345. pt resting quietly, nad, nsr on monitor, vs stable 1430. Spoke to Wheel Molder Dr Davenport at [facility], discussed pt's case with her, she asked us to fax her the ekgs, she would review and get back with us Asked tip bander to fax the ekgs 15:15 04/02/17. pt walked around dept by [employer], no cp, no sob, no trouble breathing, pt back on case monitor, nsr seen so far 1515. Spoke to Dr Hauser, she reviewed the ekg's, agreed with my assessment, was in 2:1 aflutter, converted to nsr and occasional pvc, ok, to dc home, wants to see pt in her office tuesday, wants to increase the cartia from 180mg qd to 240mg qd, increase the asa to 325mg qd, pt to check with her insurance company re which blood thinner they will pay for had long discussion with pt afterwards to go over Dr Hauser's dc plan, pt still reluctant re ablation procedure, explained aflutter that does not convert ends up being paced and can be fatal, also risk of blood clot from heart being in irregular rhythm, pt encouraged to think everything over and call [employer]. 04/02/2017 13:36 BP: 123/55. HR: 77. RR: 19. O2 saturation: 99%. Pain level now: 0/10. Vital Signs: have been reviewed as normal and appear to be correct. Critical care performed (60 minutes). Time includes: direct patient care, patient reassessment, interpretation of data (laboratory data, pulse oximetry, chest xrays and prior electrocardiograms), review of patient's medical records, medical consultation and documentation of patient care- see progress notes. Procedures included in critical care time: peripheral IV placement. Patient counseled in person regarding the patient's stable condition, test results, diagnosis and need for additional testing. Differential Diagnosis: Other possible considerations: svt, afib, aflutter, substance abuse, mi. Above considerations are based on history, physical exam, reassessment, laboratory data, X-Ray data and EKG. Differential diagnosis was discussed with patient. Disposition: Discharged home in good and improved condition (15:51). Condition: good and stable. CLINICAL IMPRESSION Chronic atrial flutter. The patient does not have one or more high risk factors and/or two or more moderate risk factors for thromboembolism. The patient is prescribed warfarin or another FDA approved anticoagulant. INSTRUCTIONS (increase Aspirin to 325mg daily, as discussed, check with insurance regarding blood thinners Blood thinners: Elaquil 500mg twice daily Xarelto 20mg daily Prudaxa 150mg twice daily). Warnings: GENERAL WARNINGS: Return or contact your physician immediately if your condition worsens or changes unexpectedly, if not improving as expected, or if other problems arise. SPECIFICALLY, return if you develop chest, neck, jaw, shoulder, arm, or back pain, difficulty breathing, a fluttering sensation in your chest, lightheadedness, fainting, excessive fatigue, or sudden sweating. Prescription Medications: Cartia 240mg po #15 1 tablet qd no refills. Understanding of the discharge instructions verbalized by patient. Follow-up with: Anny Hauser MD, Cardiology, , [facility] - [facility], [address] [place] [address], [facility], [id number] Follow up Tuesday even if well. Call for an appointment. Summary of care provided to patient. (Electronically signed by Elba Plata A.R.N.P. 04/02/2017 17:33)
--- NOTE | 2017-04-02 21:03 | ED DISCHARGE INSTRUCTIONS ---
Patient: INGRIS DURBIN General Instructions [facility] VisitID: [id number] [address] [place] [address] 72y, F Registration Date/Time: 04/02/2017 Chronic atrial flutter. The patient does not have one or more high risk factors and/or two or more moderate risk factors for thromboembolism. The patient is prescribed warfarin or another FDA approved anticoagulant. INSTRUCTIONS (increase Aspirin to 325mg daily, as discussed, check with insurance regarding blood thinners Blood thinners: Elaquil 500mg twice daily Xarelto 20mg daily Prudaxa 150mg twice daily). Warnings: GENERAL WARNINGS: Return or contact your physician immediately if your condition worsens or changes unexpectedly, if not improving as expected, or if other problems arise. SPECIFICALLY, return if you develop chest, neck, jaw, shoulder, arm, or back pain, difficulty breathing, a fluttering sensation in your chest, lightheadedness, fainting, excessive fatigue, or sudden sweating. Prescription Medications: Cartia 240mg po #15 1 tablet qd no refills. Understanding of the discharge instructions verbalized by patient. Follow-up with: Anny Hauser MD, Cardiology, , [facility] [place] [address], [facility], [address] Follow up Tuesday even if well. Call for an appointment. Summary of care provided to patient. ADDITIONAL INFORMATION Atrial Flutter Atrial flutteris a condition where the heart beats at a very rapid rate. It is due to a disturbance in the electrical pathways of the heart. It is a sign of heart disease or other health problems affecting the heart. The most common symptom ispalpitations. This is the feeling that your heart is fluttering or beating fast or hard. When the heart beats too fast, it does not pump blood very well. This can cause other symptoms such as anxiety, fatigue, shortness of breath, chest pain, dizziness or fainting. If this is your first episode of atrial flutter, and you have no heart or lung disease, you may never have another episode again. But in most cases, atrial flutter comes and goes, lasting from a few hours to a couple of days. Sometimes the atrial flutter does not ever go away and becomes chronic. Atrial flutter may be caused by disease of the heart or other conditions in the body that affect the heart: Coronary artery disease (arteriosclerosis) High blood pressure Disease of the heart valves Enlarged heart Atrial flutter can occur without heart disease due to: Overactive thyroid (hyperthyroid) Chronic lung disease (COPD, emphysema, bronchitis) Heavy alcohol use Cardiac stimulants (cocaine, amphetamines, diet pills, certain decongestant cold medicines, caffeine or nicotine) Infection Treating or removing these causes will improve success in the treatment of atrial flutter and reduce your risk of recurrence. Atrial flutter can alternate back and forth with another abnormal rhythm called atrial fibrillation. The risk of stroke is higher with these conditions. Proper treatment can reduce your risk. Home Care: Resume your usual activities as soon as you are feeling back to normal. If you smoke, stop smoking. Contact your doctor or a local stop-smoking program for help. Avoid stimulants (cocaine, amphetamines, diet pills, certain decongestant cold medicines, caffeine, or nicotine). If medicine is prescribed to prevent recurrence of atrial fibrillation, take it exactly as directed. Some medicines must be taken daily, not just when you have symptoms, in order to be effective. If you were prescribed warfarin (Coumadin) to reduce stroke risk, have your blood tested on a regular basis as advised by your doctor. This will ensure that the dose is correct for you. Follow Up With Your Doctor Or As Advised By Our Staff. Get Prompt Medical Attention If Any Of The Following Occur: Increasing shortness of breath Swellingof the legs Unexpected weight gain Chest pain or palpitations (the sense that your heart is fluttering, beating fast or hard) Fever of 100.4F (38C) or higher, or as directed by your healthcare provider Cough with dark-colored or bloody sputum (mucus) Pain, redness, or swelling in one leg Signs of stroke: Weakness or numbness of an arm or leg or one side of the face Difficulty with speech or vision Extreme drowsiness, confusion, dizziness or fainting You have been given the following additional information: Atrial Flutter (Electronically signed by Elba Plata A.R.N.P. 04/02/2017 17:33)
--- NOTE | 2017-04-02 21:03 | ED MED RECONCILIATION SUMMARY ---
Patient: INGRIS DURBIN Medication Reconciliation Report [facility] VisitID: [id number] [address] [place] [address] 72y, F Registration Date/Time: 04/02/2017 Weight: 99.7 kg Height/Length: 70 in. BMI: 31.5 ALLERGIES: None The patient's Home Medications are listed below: THE FOLLOWING MEDICATIONS NEED TO BE RECONCILED: Aspirin Childrens Oral (81 mg) 1 tablet, BID Atorvastatin Calcium Oral (10 mg) 1 tablet, daily Cartia XT Oral (180 mg) 1 capsule, daily Co Q 10 Oral (100 mg) 1 capsule, daily Fenofibrate Oral (160 mg) 1 tablet, daily Fish Oil Oral (1200 mg) 1 capsule, BID Flaxseed Oil Oral 1400 mg , daily Lisinopril Oral 10 mg, daily Multiple Vitamin Oral, daily Premarin Vaginal 0.150, daily Vitamin D Oral 4000 mg, BID The source(s) of the original Home Medication information: Not obtained. The following Medications were given to the patient in the Emergency Department: Cardizem [IVP] IVP 25 mg, administered: 04/02/2017 1:05:00 PM IV NS IV Fluids bolus 0, then 1000 mL/hr, administered: 04/02/2017 1:01:00 PM Aspirin [PO] PO 325 mg, administered: 04/02/2017 2:08:00 PM The following Medications were prescribed to the patient: Cartia 240mg po#151 tablet qdno refills. -- Elba Plata A.R.N.P.
--- NOTE | 2017-04-02 21:03 | ED MAR SUMMARY ---
..... Medication Administration Record [facility] [address] [place] [address] Patient: INGRIS DURBIN Visit ID: [id number] 72y, F Weight: 99.7 kg Height/Length: 70 in BMI: 31.5 ALLERGIES: None Start 13:01 04/02/2017 Leida Smallwood R.N., Stop 14:07 04/02/2017 Leida Smallwood R.N. Medication Administered: IV NS (SALINE), Dose: IV Fluids over 1 hour(s), Rate: 1000 mL/hr, Dispensed: 1000 mL bag, Site: #1 left hand. Medication Ordered: IV NS : initial bolus 1000 mL (1000 mL/hr), then none - (NOW). Given 13:05 04/02/2017 Leida Smallwood R.N. Medication Administered: CARDIZEM [IVP], Dose: 25 mg IVP over 3 minute(s), Site: #1 left hand. Medication Ordered: Cardizem IV 25 mg (HIGH ALERT MEDICATION, NOW). Given 14:08 04/02/2017 Leida Smallwood R.N. Medication Administered: ASPIRIN [PO], Dose: 325 mg PO. Medication Ordered: Aspirin PO 325 mg (Do not crush or chew, NOW).
--- NOTE | 2017-04-02 21:03 | ED DISCHARGE INSTRUCTIONS ---
Patient: INGRIS DURBIN General Instructions [facility] VisitID: [id number] [address] [place] [address] 72y, F Registration Date/Time: 04/02/2017 Chronic atrial flutter. The patient does not have one or more high risk factors and/or two or more moderate risk factors for thromboembolism. The patient is prescribed warfarin or another FDA approved anticoagulant. INSTRUCTIONS (increase Aspirin to 325mg daily, as discussed, check with insurance regarding blood thinners Blood thinners: Elaquil 500mg twice daily Xarelto 20mg daily Prudaxa 150mg twice daily). Warnings: GENERAL WARNINGS: Return or contact your physician immediately if your condition worsens or changes unexpectedly, if not improving as expected, or if other problems arise. SPECIFICALLY, return if you develop chest, neck, jaw, shoulder, arm, or back pain, difficulty breathing, a fluttering sensation in your chest, lightheadedness, fainting, excessive fatigue, or sudden sweating. Prescription Medications: Cartia 240mg po #15 1 tablet qd no refills. Understanding of the discharge instructions verbalized by patient. Follow-up with: Anny Hauser MD, Cardiology, , [facility] [place] [address], [facility], [address] Follow up Tuesday even if well. Call for an appointment. Summary of care provided to patient. ADDITIONAL INFORMATION Atrial Flutter Atrial flutteris a condition where the heart beats at a very rapid rate. It is due to a disturbance in the electrical pathways of the heart. It is a sign of heart disease or other health problems affecting the heart. The most common symptom ispalpitations. This is the feeling that your heart is fluttering or beating fast or hard. When the heart beats too fast, it does not pump blood very well. This can cause other symptoms such as anxiety, fatigue, shortness of breath, chest pain, dizziness or fainting. If this is your first episode of atrial flutter, and you have no heart or lung disease, you may never have another episode again. But in most cases, atrial flutter comes and goes, lasting from a few hours to a couple of days. Sometimes the atrial flutter does not ever go away and becomes chronic. Atrial flutter may be caused by disease of the heart or other conditions in the body that affect the heart: Coronary artery disease (arteriosclerosis) High blood pressure Disease of the heart valves Enlarged heart Atrial flutter can occur without heart disease due to: Overactive thyroid (hyperthyroid) Chronic lung disease (COPD, emphysema, bronchitis) Heavy alcohol use Cardiac stimulants (cocaine, amphetamines, diet pills, certain decongestant cold medicines, caffeine or nicotine) Infection Treating or removing these causes will improve success in the treatment of atrial flutter and reduce your risk of recurrence. Atrial flutter can alternate back and forth with another abnormal rhythm called atrial fibrillation. The risk of stroke is higher with these conditions. Proper treatment can reduce your risk. Home Care: Resume your usual activities as soon as you are feeling back to normal. If you smoke, stop smoking. Contact your doctor or a local stop-smoking program for help. Avoid stimulants (cocaine, amphetamines, diet pills, certain decongestant cold medicines, caffeine, or nicotine). If medicine is prescribed to prevent recurrence of atrial fibrillation, take it exactly as directed. Some medicines must be taken daily, not just when you have symptoms, in order to be effective. If you were prescribed warfarin (Coumadin) to reduce stroke risk, have your blood tested on a regular basis as advised by your doctor. This will ensure that the dose is correct for you. Follow Up With Your Doctor Or As Advised By Our Staff. Get Prompt Medical Attention If Any Of The Following Occur: Increasing shortness of breath Swellingof the legs Unexpected weight gain Chest pain or palpitations (the sense that your heart is fluttering, beating fast or hard) Fever of 100.4F (38C) or higher, or as directed by your healthcare provider Cough with dark-colored or bloody sputum (mucus) Pain, redness, or swelling in one leg Signs of stroke: Weakness or numbness of an arm or leg or one side of the face Difficulty with speech or vision Extreme drowsiness, confusion, dizziness or fainting You have been given the following additional information: Atrial Flutter (Electronically signed by Elba Plata A.R.N.P. 04/02/2017 17:33)
--- NOTE | 2017-04-02 21:03 | ED MED RECONCILIATION SUMMARY ---
Patient: INGRIS DURBIN Medication Reconciliation Report [facility] VisitID: [id number] [address] [place] [address] 72y, F Registration Date/Time: 04/02/2017 Weight: 99.7 kg Height/Length: 70 in. BMI: 31.5 ALLERGIES: None The patient's Home Medications are listed below: THE FOLLOWING MEDICATIONS NEED TO BE RECONCILED: Aspirin Childrens Oral (81 mg) 1 tablet, BID Atorvastatin Calcium Oral (10 mg) 1 tablet, daily Cartia XT Oral (180 mg) 1 capsule, daily Co Q 10 Oral (100 mg) 1 capsule, daily Fenofibrate Oral (160 mg) 1 tablet, daily Fish Oil Oral (1200 mg) 1 capsule, BID Flaxseed Oil Oral 1400 mg , daily Lisinopril Oral 10 mg, daily Multiple Vitamin Oral, daily Premarin Vaginal 0.150, daily Vitamin D Oral 4000 mg, BID The source(s) of the original Home Medication information: Not obtained. The following Medications were given to the patient in the Emergency Department: Cardizem [IVP] IVP 25 mg, administered: 04/02/2017 1:05:00 PM IV NS IV Fluids bolus 0, then 1000 mL/hr, administered: 04/02/2017 1:01:00 PM Aspirin [PO] PO 325 mg, administered: 04/02/2017 2:08:00 PM The following Medications were prescribed to the patient: Cartia 240mg po#151 tablet qdno refills. -- Elba Plata A.R.N.P.
--- NOTE | 2017-04-02 21:03 | ED MAR SUMMARY ---
..... Medication Administration Record [facility] [address] [place] [place] [address] Patient: INGRIS DURBIN Visit ID: [id number] 72y, F Weight: 99.7 kg Height/Length: 70 in BMI: 31.5 ALLERGIES: None Start 13:01 04/02/2017 Leida Smallwood R.N., Stop 14:07 04/02/2017 Leida Smallwood R.N. Medication Administered: IV NS (SALINE), Dose: IV Fluids over 1 hour(s), Rate: 1000 mL/hr, Dispensed: 1000 mL bag, Site: #1 left hand. Medication Ordered: IV NS : initial bolus 1000 mL (1000 mL/hr), then none - (NOW). Given 13:05 04/02/2017 Leida Smlalwood R.N. Medication Administered: CARDIZEM [IVP], Dose: 25 mg IVP over 3 minute(s), Site: #1 left hand. Medication Ordered: Cardizem IV 25 mg (HIGH ALERT MEDICATION, NOW). Given 14:08 04/02/2017 Leida Smallwood R.N. Medication Administered: ASPIRIN [PO], Dose: 325 mg PO. Medication Ordered: Aspirin PO 325 mg (Do not crush or chew, NOW).
== END 2017-04-02 16:00 | disposition home or self-care (01) ==
LOC: ED SRH 12:41
DX: I48.2 Chronic atrial fibrillation (principal); I10 Essential (primary) hypertension; Z79.82 Long term (current) use of aspirin; Z79.899 Other long term (current) drug therapy
CPT/HCPCS: 90100; 90616; 92610; 94001; 94060; 95059

== ENCOUNTER 2017-05-07 20:41 | Emergency (ER) | payer OTHER ==
--- NOTE | 2017-05-07 22:41 | DIAGNOSTIC IMAGING REPORT ---
PROCEDURE: XR CHEST 1 VIEW INDICATION: A FIB/FLUTTER TECHNIQUE: Portable AP view (2145 hours). COMPARISON: Compared to chest x-ray on 04/02/2017. FINDINGS: Allowing for overlying wires and electrodes, lungs are clear. Heart and mediastinum are normal. Thorax is normal. IMPRESSION: 1. Negative chest.
--- NOTE | 2017-05-07 23:29 | ED ORDER SUMMARY ---
..... Patient: INGRIS DURBIN OrderSheet [facility] VisitID: [id number] [place] [address] 72y, F Registration Date/Time: 05/07/2017 ORDER SHEET Weight: 90.7 kg (stated) Allergies: None GENERAL ORDERS: Chest 1V Urgent (21:05/07/2017 Amor Bergman) (Ack 21:26 CHagerty ER Rattle Leak And Squeak Repairer) (21:41 DDean R.N.) Irrigator Valve Pipe (Continuous) (tachycardia) (:05/07/2017 Amor Bergman) (21:24 DDean R.N.) CBC w Diff Urgent (:05/07/2017 Amor Bergman) (Ack 21:26 [facility]ty ER Rattle Leak And Squeak Repairer) (21:40 DDean R.N.) CMP Urgent (:05/07/2017 Amor Bergman) (Ack 21:26 [facility] ER Rattle Leak And Squeak Repairer) (21:40 DDean R.N.) UA-Culture if indicated Urgent (21:05/07/2017 Amor Bergman) (Ack 21:26 [facility] ER Rattle Leak And Squeak Repairer) (22:25 DDean R.N.) PT with INR Urgent (:05/07/2017 Amor Bergman) (Ack 21:26 [facility] ER Rattle Leak And Squeak Repairer) (21:41 DDean R.N.) PTT Urgent (:05/07/2017 Amor Bergman) (Ack 21:26 [facility] ER Rattle Leak And Squeak Repairer) (21:41 DDean R.N.) TSH Urgent (:05/07/2017 Amor Bergman) (Ack 21:26 [facility] ER Rattle Leak And Squeak Repairer) (21:41 DDean R.N.) Magnesium Urgent (:05/07/2017 Amor Bergman) (Ack 21:26 [facility] ER Rattle Leak And Squeak Repairer) (21:41 DDean R.N.) Pulse oximeter (:05/07/2017 Amor Bergman) (21:24 DDean R.N.) EKG - ER Stat (:05/07/2017 Amor Bergman) (21:26 [facility] ER Rattle Leak And Squeak Repairer) EKG - ER Repeat Stat (21:23 05/07/2017 Amor Bergman) (21:26 [facility] ER Rattle Leak And Squeak Repairer) MEDICATION ORDERS: IV FLUIDS: IV Saline Lock (21:22 05/07/2017 Amor Bergman) (21:25 Estrella R.NNaina) ORDER SHEET NOTES: [Electronically signed by Mayra Emery R.N. (23:42 05/07/2017)] [Electronically signed by Nacho Hameed Dr. (15:35 05/10/2017)] [Electronically locked/signed by Mayra Emery R.N. (23:42 05/07/2017)]
--- NOTE | 2017-05-07 23:29 | ED ORDER SUMMARY ---
..... Patient: INGRIS DURBIN OrderSheet [facility] VisitID: [id number] [place] [address] 72y, F Registration Date/Time: 05/07/2017 ORDER SHEET Weight: 90.7 kg (stated) Allergies: None GENERAL ORDERS: Chest 1V Urgent (21:05/07/2017 Amor Bergman) (Ack 21:26 [facility] ER Nurse Obgyn) (21:41 DDean R.N.) Paper Cup Machine Tender (Continuous) (tachycardia) (:05/07/2017 Amor Bergman) (21:24 DDean R.N.) CBC w Diff Urgent (:05/07/2017 Amor Bergman) (Ack 21:26 [facility] ER Nurse Obgyn) (21:40 DDean R.N.) CMP Urgent (:05/07/2017 Amor Bergman) (Ack 21:26 [facility] ER Nurse Obgyn) (21:40 DDean R.N.) UA-Culture if indicated Urgent (21:05/07/2017 Amor Bergman) (Ack 21:26 [facility] ER Nurse Obgyn) (22:25 DDean R.N.) PT with INR Urgent (:05/07/2017 Amor Bergman) (Ack 21:26 [facility] ER Nurse Obgyn) (21:41 DDean R.N.) PTT Urgent (:05/07/2017 Amor Bergman) (Ack 21:26 [facility] ER Nurse Obgyn) (21:41 DDean R.N.) TSH Urgent (:05/07/2017 Amor Bergman) (Ack 21:26 [facility] ER Nurse Obgyn) (21:41 DDean R.N.) Magnesium Urgent (:05/07/2017 Amor Bergman) (Ack 21:26 [facility] ER Nurse Obgyn) (21:41 DDean R.N.) Pulse oximeter (:05/07/2017 Amor Bergman) (21:24 DDean R.N.) EKG - ER Stat (:05/07/2017 Amor Bergman) (21:26 [facility] ER Nurse Obgyn) EKG - ER Repeat Stat (21:23 05/07/2017 Amor Bergman) (21:26 [facility] ER Nurse Obgyn) MEDICATION ORDERS: IV FLUIDS: IV Saline Lock (21:22 05/07/2017 Amor Bergman) (21:25 Estrella R.NNaina) ORDER SHEET NOTES: [Electronically signed by Mayra Emery R.N. (23:42 05/07/2017)] [Electronically signed by Nacho Hameed Dr. (15:35 05/10/2017)] [Electronically locked/signed by Mayra Emery R.N. (23:42 05/07/2017)]
--- NOTE | 2017-05-07 23:29 | ED NURSING NOTES ---
Clinical Report - Nurses [facility] [address] [place] [address] 05/07/2017 20:42 Patient: INGRIS DURBIN TRIAGE Triage time 5. Acuity: LEVEL 3. Chief Complaint: (pt in with 30 min of rapid heart rate, has history of a-fib/flutter). --20:54 Abigail Merrill R.N. 20:45 05/07/17. BP: 164/74. HR: 145. RR: 17. O2 saturation: 100%. Temp: 98.2 F. Pain level now: 0/10. --20:54 Abigail Merrill R.N. Weight: 90.7 kg stated. Height/Length: 70 inches Per Patient. BMI: 28.7. --20:46 Abigail Merrill R.N. Medications Diltiazem HCl Oral 240 mg, daily. --20:47 Abigail Merrill R.N. Atorvastatin Calcium Oral (Tablet 10 mg) 1 tablet, daily. Cartia XT Oral (Capsule Extended Release 24 Hour 180 mg) 1 capsule, daily. Co Q 10 Oral (Capsule 100 mg) 1 capsule, daily. Fenofibrate Oral (Tablet 160 mg) 1 tablet, daily as needed. Fish Oil Oral (Capsule Delayed Release 1200 mg) 1 capsule, BID. Flaxseed Oil Oral 1400 mg , daily. Lisinopril Oral 10 mg, daily. Multiple Vitamin Oral, daily. Premarin Vaginal 0.150, daily. Vitamin D Oral 4000 mg, BID. --20:57 Abigail Merrill R.N. Eliquis Oral, 1 daily. --20:57 Abigail Merrill R.N. The following entry was struck and corrected by Abigail Merrill R.N., 20:48 (05/07/17) Reason for correction - other(correction). <<STRICKEN ENTRY-- Diltiazem HCl Oral 40mg , daily. --20:47 Abigail Merrill R.N. --END STRIKE>>. Allergies None. --20:47 Abigail Merrill R.N. History Arrived by private vehicle. Historian: patient. Accompanied by spouse. Primary physician (dr anderson in [facility] to do cardiac oblation. (05/30)). No nausea or vomiting. SOCIAL HX: Never smoker. No alcohol use or drug use. --20:54 Abigail Merrill R.N. PROBLEMS: Atrial Flutter. Hypercholesterolemia. Hypertension. --20:48 Abigail Merrill R.N. ADDITIONAL SURGERIES: Appendectomy. Carpal Tunnel Surgery. Shoulder Surgery. Tonsillectomy. --20:48 Abigail Merrill R.N. Interventions ID band on patient. To treatment room. --20:54 Abigail Merrill R.N. PHYSICAL ASSESSMENT 20:45. To room via wheelchair. Patient gowned. GENERAL / NEURO / PSYCH: Alert. Oriented X 4. Appears anxious. RESPIRATORY: Mild respiratory distress. No chest wall tenderness. CVS: Capillary refill less than 2 seconds. GI / : Abdomen soft. EXTREMITIES: No lower extremity edema. SKIN: Skin is warm and dry. --20:54 Abigail Merrill R.N. NURSING PROGRESS NOTES 20:45. Oxygen administered. funeral arrangement director placed on patient. Patient gowned. Head of bed elevated. Reassurance given. Patient identifiers checked. Call light placed in reach. Side rails up. Bed placed in lowest position. Patient ready for evaluation- chart flagged. --20:51 Abigail Merrill R.N. 20:53. EKG time: (2052). EKG was performed by a tech and shown to the ED physician. Done by Javier montalvo. --20:52 Abigail Merrill R.N. 20:53 05/07/2017 Site #1 started via IV in the left forearm with an 20g angiocath; one attempt. Blood drawn: rainbow set. Labeled in the presence of the patient and sent to the lab. Saline lock flushed with 10 mL saline (done by Marbin Sanchez EDRN). --20:53 Abigail Merrill R.N. 21:00 05/07/17. BP: 126/69. HR: 148. RR: 20. O2 saturation: 100%. Temp: deferred. Pain level now: 0/10. Additional comments: pt is anxious, asking when she will be seen by ERMD, states she doesn't have pain, "it just uncomfortable to feel this going on" Pt also states "I just can't breath like I want to" . --21:02 Abigail Merrill R.N. 21:05. ( Pt had spontaneous conversion back to NSR while taking deep breaths and talking with me.). --21:08 Abigail Merrill R.N. 21:05 05/07/17. BP: 124/63. HR: 73. RR: 15. O2 saturation: 99%. Temp: deferred. Pain level now: 0/10. Additional comments: denies problems with breathing, anxiety is gone and no chest pain at present . --21:11 Abigail Merrill R.N. EKG time: (2128). EKG was performed by a tech and shown to the ED physician. ( performed per MD MARTINEZ). --21:28 Javier Coulter, ER Tech1 21:41 05/07/17. Portable chest x-ray ordered, performed and shown to the ED physician. --21:41 Abigail Merrill R.N. 22:00 05/07/17. BP: 118/62. HR: 78. RR: 22. O2 saturation: 98%. Temp: deferred. Pain level now: 0/10. Additional comments: pt reminded we need a UA . --22:12 Abigail Merrill R.N. 22:13 05/07/17. Care transferred and report given (Mayra Isaac, EDRN). --22:13 Abigail Merrill R.N. 20:20. Patient ID band checked for patient name and birthdate. Clean catch urine collected with return of yellow-colored clear urine; sample sent to lab for urinalysis and culture. Specimen labeled in the presence of the patient. ( Pt ambulated in barrera to bathroom. UA obtained and sent to lab. Pr denies SOB, dizziness or chest pain with activity). --22:27 Abigail Merrill R.N. 22:25 05/07/17. BP: 129/67. HR: 76. RR: 17. O2 saturation: 99% on room air. Temp: deferred. Pain level now: 0/10. --22:28 Abigail Merrill R.N. Overall patient status is improved- she states feels better. RESPIRATORY: No respiratory distress. Breath sounds normal. CVS: Normal sinus rhythm noted. SKIN: Skin is warm and dry. Skin color within normal limits. --23:00 Mayra Emery R.N. 22:45 05/07/17. BP: 127/64. HR: 85 (regular). RR: 18. O2 saturation: 99% on room air. Temp: deferred. Pain level now: 0/10. --23:00 Mayra Emery R.N. DISPOSITION / DISCHARGE 23:30 05/07/2017 Site #1 removed upon discharge. Catheter intact. Manual pressure and bandage applied. --23:41 Mayra Emery R.N. Condition at departure: improved and stable. No learning barriers present. Discharge instructions provided and reviewed with the patient. Reviewed referral to a primary care physician for followup. Patient verbalized understanding. Written instructions provided in Thai. No medication instructions or treatment instructions. The patient was discharged home and accompanied by spouse. She left the Emergency Department ambulatory and via private vehicle. Spouse driving. --23:42 Mayra Emery R.N. 23:30 05/07/17. BP: 139/74. HR: 81 (regular and normal rate). RR: 18 (regular and unlabored). O2 saturation: 99% on room air. Temp: deferred. Pain level now: 0/10. --23:42 Mayra Emery R.N. Departure time: 2333. --23:42 Mayra Emery R.N. Locked/Released at 05/07/2017 23:42 by Mayra Emery R.N.
--- NOTE | 2017-05-07 23:29 | ED CLINICAL REPORT ---
Clinical Report - Physicians/Mid Levels [facility] [address] [place] [address] 05/07/2017 20:42 Patient: INGRIS DURBIN Time Seen: 2110. Arrived- By private vehicle. Historian- patient. HISTORY OF PRESENT ILLNESS Chief Complaint: FAST HEART RATE. Modifying factors. Not worsened by anything. Not relieved by anything. This started just prior to arrival today. It was abrupt in onset and has been constant but is gone now. Is now gone. It is described as a fast heart beat. No chest pain or discomfort, difficulty breathing, sweating episodes or fainting episodes. No dizziness, tingling or muscle spasms. Similar symptoms previously: (a few times). Recent medical care: Not recently seen/assessed. REVIEW OF SYSTEMS All systems otherwise negative, except as recorded above. PAST HISTORY See nurses notes. Medications: Eliquis Oral, 1 daily. Atorvastatin Calcium Oral (Tablet 10 mg) 1 tablet, daily. Cartia XT Oral (Capsule Extended Release 24 Hour 180 mg) 1 capsule, daily. Co Q 10 Oral (Capsule 100 mg) 1 capsule, daily. Fenofibrate Oral (Tablet 160 mg) 1 tablet, daily as needed. Fish Oil Oral (Capsule Delayed Release 1200 mg) 1 capsule, BID. Flaxseed Oil Oral 1400 mg , daily. Lisinopril Oral 10 mg, daily. Multiple Vitamin Oral, daily. Premarin Vaginal 0.150, daily. Vitamin D Oral 4000 mg, BID. Diltiazem HCl Oral 240 mg, daily. Allergies: None. SOCIAL HISTORY Smoker- current status unknown. No alcohol use or drug use. No recent travel. Is a local resident. ADDITIONAL NOTES The nursing notes have been reviewed. PHYSICAL EXAM Vital Signs: 05/07/2017 20:45 BP: 164/74. HR: 145. RR: 17. O2 saturation: 100%. Temp: 98.2 F. Pain level now: 0/10. Oxygen saturation normal. Appearance: Alert. Oriented X3. No acute distress. Eyes: Pupils equal, round and reactive to light. Eyes normal inspection. ENT: Ears normal. Nose normal. Pharynx normal. Neck: Normal inspection. Neck supple. CVS: Normal heart rate and rhythm. Heart sounds normal. Pulses normal. Respiratory: No respiratory distress. Breath sounds normal. Chest nontender. No rales, rhonchi or wheezes. Abdomen: Soft and nontender. Bowel sounds normal. Skin: Skin warm and dry. Normal skin color. No rash. Normal skin turgor. Extremities: Extremities exhibit normal ROM. No lower extremity edema. LABS, X-RAYS, AND EKG EKG: EKG time: (2052). Atrial flutter (143). Normal QRS complex. Normal axis. Normal ST and T waves and QT. The study has been interpreted contemporaneously. The study has been independently viewed by me. The EKG appears to be a good tracing. Interpretation time: 2058. EKG #2: No acute process. No acute ischemia. Normal EKG. Normal sinus rhythm. Rate: 74. Normal P waves. Normal GUSTAVO. Normal QRS complex. Normal axis. The study has been interpreted contemporaneously. The study has been independently viewed by me. The EKG appears to be a good tracing. Chest X-ray: (PROCEDURE: XR CHEST 1 VIEW INDICATION: A FIB/FLUTTER TECHNIQUE: Portable AP view (2144 hours). COMPARISON: Compared to chest x-ray on 04/02/2017. FINDINGS: Allowing for overlying wires and electrodes, lungs are clear. Heart and mediastinum are normal. Thorax is normal. IMPRESSION: 1. Negative chest.). Laboratory Tests: UA-Culture if indicated: (DAWIT: 05/07/2017 22:15) ( MsgRcvd 05/07/2017 22:40) Final results Test Result Flag Units (Reference) URINE COLOR YELLOW URINE APPEARANCE CLEAR URINE GLUCOSE NEGATIVE (NEGATIVE) URINE BILIRUBIN NEGATIVE (NEGATIVE) URINE KETONE NEGATIVE (NEGATIVE) URINE SPECIFIC GRAVITY 1.020 (1.010-1.030) URINE PH 6.0 (5.0-8.0) URINE PROTEIN NEGATIVE (NEGATIVE) URINE UROBILINOGEN 0.2 EU/dL (0.2-1.0) URINE NITRITE NEGATIVE (NEGATIVE) URINE BLOOD NEGATIVE (NEGATIVE) URINE LEUK ESTERASE NEGATIVE (NEGATIVE) URINE RBC 0-1 rbc/hpf (0-1) URINE WBC 0-1 wbc/hpf (0-1) URINE EPITHELIAL CELLS 0-1 EPI/hpf (0-5) URINE BACTERIA NONE SEEN (NONE SEEN) URINE COMMENT CULT NOT INDICATED URINE CULTURES ARE SET-UP BASED ON THE FOLLOWING CRITERIA:POSITIVE NITRITEPOSITIVE LEUKOCYTE ESTERASEGREATER THAN 10 WHITE BLOOD CELLSMODERATE (2+) OR GREATER BACTERIA CBC w Diff: (DAWIT: 05/07/2017 20:53) ( [facility] 05/07/2017 21:32) Final results Test Result Flag Units (Reference) WHITE BLOOD COUNT 5.7 K/uL (4.5-11.5) RED BLOOD COUNT 4.19 M/uL (4.00-5.20) HEMOGLOBIN 13.0 gm/dL (12.0-16.0) HEMATOCRIT 37.8 % (36.0-46.0) MEAN CELL VOLUME 90 fL (80-100) MEAN CORPUSCULAR HGB 31 pg (26-34) MEAN CORPUSCULAR HGB CONC 35 g/dL (31-37) RED CELL DISTRIBUTION WIDTH 12.4 % (11.6-14.8) PLATELET COUNT 236 K/uL (150-400) NEUTROPHIL % 54.0 % (50-75) LYMPH % 31.8 % (25-40) MONO % 11.3 % (3-14) EOSINOPHIL % 2.1 % (0-4) BASOPHIL % 0.8 % (0-2) PT with INR: (DAWIT: 05/07/2017 21:35) ( [facility] 05/07/2017 21:58) Final results Test Result Flag Units (Reference) INR 1.1 (0.8-1.2) Low Intensity Therapy: INR 1.5-2.0 PT range 18.5-23.1Mod.Intensity Therapy: INR 2.0-3.0 PT range 23.1-31.5High Intensity Therapy: INR 2.5-3.5 PT range 27.4-35.5High Intensity Therapy 2: INR 3.0-4.0 PT range 31.5-39.3 APTT 35 H SECONDS (24-34) CMP: (DAWIT: 05/07/2017 20:53) ( [facility] 05/07/2017 22:17) Final results Test Result Flag Units (Reference) GLUCOSE 138 H mg/dL (70-110) BUN 28 H mg/dL (7-18) CREATININE 1.5 H mg/dL (0.6-1.3) Estimated GFR 36.49 mL/min Estimated GFR- 44.22 mL/min Note: Persistent reduction over 3 months in eGFR<60 mL/min/1.73 m2 defines CKD. Patients with eGFR values>=60 mL/min/1.73 m2 may also have CKD if evidence ofpersistent proteinuria. Additional information may be foundat www.[email or web address].org. SODIUM 141 mmol/L (136-145) POTASSIUM 4.2 mmol/L (3.5-5.1) CHLORIDE 104 mmol/L (98-107) CARBON DIOXIDE 24 mmol/L (21-32) CALCIUM 9.7 mg/dL (8.5-10.1) TOTAL PROTEIN 7.7 g/dL (6.4-8.2) ALBUMIN 4.0 g/dL (3.3-5.0) BILIRUBIN, TOTAL 0.4 mg/dL (0.0-1.0) ALKALINE PHOSPHATASE 76 U/L (46-116) AST (SGOT) 20 U/L (15-37) ALT (SGPT) 32 U/L (12-78) MAGNESIUM 1.9 mg/dL (1.8-2.4) THYROID STIMULATING HORMONE 4.220 H uIU/mL (0.30-3.74) . PROGRESS AND PROCEDURES Course of Care: the patient is a 72-year-old female presented for evaluation of rapid heart rate. Patient is noted to be in SVT on initial evaluation from EKG. Patient with mild hypertension in setting of hypotension. Patient is asymptomatic. By the time I was able to evaluate the patient at bedside, patient had spontaneously converted. Patient reports no pain or discomfortor other symptoms while this was occurring. We'll be fighting the patient for any causes for thepatient to go into SVT. Patient states that she is aware of the problem with her heart. Patient states that she wasgiven a referral by her escrow officer to who she describes as a feed management advisor for a potential procedure to stop the SVT from occurring. Patient reports no other concerns at this time. The patient's workup was unremarkable for the findings above. No acute findings noted on patient's evaluation. Patient continues to be in no acute distress. No signs of shortness of breath or chest pain. Do not feel symptoms are caused by acute myocardial infarction, pulmonary embolism, pneumonia. patient is completely a symptomatically. Because of this, do not feel further workup in emergency department as warranted. Recommended patient follow-up with her doctor in regards to today's presentation. I discussed with the patient work. Emergency departmeincluding diagnosis, rhonchi, follow-up, and return precautions. All questions have been answered. The patient expressed understanding of these instructions and was agreeable to them. Disposition: Discharged. Condition: good. CLINICAL IMPRESSION 05/07/2017 22:45 BP: 127/64. HR: 85. RR: 18. O2 saturation: 99%. Pain level now: 0/10. 05/07/2017 22:25 BP: 129/67. HR: 76. RR: 17. O2 saturation: 99%. Pain level now: 0/10. Blood pressure normal. Oxygen saturation normal. Chronic atrial flutter with uncontrolled rate. (resolved). INSTRUCTIONS Warnings: GENERAL WARNINGS: Return or contact your physician immediately if your condition worsens or changes unexpectedly, if not improving as expected, or if other problems arise. SPECIFICALLY, return if you develop chest, neck, jaw, shoulder, arm, or back pain, difficulty breathing, a fluttering sensation in your chest, lightheadedness, fainting, excessive fatigue, or sudden sweating. Your Current Medications: CONTINUE TAKING THE FOLLOWING MEDICATIONS: Atorvastatin Calcium Oral : Tablet 10 mg, 1 tablet daily. Cartia XT Oral : Capsule Extended Release 24 Hour 180 mg, 1 capsule daily. Co Q 10 Oral : Capsule 100 mg, 1 capsule daily. Diltiazem HCl Oral : 240 mg daily. Eliquis Oral : 1 daily. Fenofibrate Oral : Tablet 160 mg, 1 tablet daily, prn. Fish Oil Oral : Capsule Delayed Release 1200 mg, 1 capsule BID. Flaxseed Oil Oral : 1400 mg daily. Lisinopril Oral : 10 mg daily. Multiple Vitamin Oral : daily. Premarin Vaginal : 0.150 daily. Vitamin D Oral : 4000 mg BID. Follow-up: Return to the emergency department as needed. Follow up with your doctor in three days. Reason for referral: recheck today's concerns. Summary of care provided to patient via paper. Follow up with doctor Your escrow officer. Reason for referral: call to schedule an appointment in 3 - 5 days. Summary of care provided to patient via paper. Screening today revealed the patient's blood pressure to be in the normal range. The patient should follow up with a primary care provider for blood pressure management. Understanding of the discharge instructions verbalized by patient. (Electronically signed by Nacho Hameed Dr. 05/10/2017 15:35)
--- NOTE | 2017-05-07 23:29 | ED CLINICAL REPORT ---
Clinical Report - Physicians/Mid Levels [facility] [address] [place] [address] 05/07/2017 20:42 Patient: INGRIS DURBIN Time Seen: 2110. Arrived- By private vehicle. Historian- patient. HISTORY OF PRESENT ILLNESS Chief Complaint: FAST HEART RATE. Modifying factors. Not worsened by anything. Not relieved by anything. This started just prior to arrival today. It was abrupt in onset and has been constant but is gone now. Is now gone. It is described as a fast heart beat. No chest pain or discomfort, difficulty breathing, sweating episodes or fainting episodes. No dizziness, tingling or muscle spasms. Similar symptoms previously: (a few times). Recent medical care: Not recently seen/assessed. REVIEW OF SYSTEMS All systems otherwise negative, except as recorded above. PAST HISTORY See nurses notes. Medications: Eliquis Oral, 1 daily. Atorvastatin Calcium Oral (Tablet 10 mg) 1 tablet, daily. Cartia XT Oral (Capsule Extended Release 24 Hour 180 mg) 1 capsule, daily. Co Q 10 Oral (Capsule 100 mg) 1 capsule, daily. Fenofibrate Oral (Tablet 160 mg) 1 tablet, daily as needed. Fish Oil Oral (Capsule Delayed Release 1200 mg) 1 capsule, BID. Flaxseed Oil Oral 1400 mg , daily. Lisinopril Oral 10 mg, daily. Multiple Vitamin Oral, daily. Premarin Vaginal 0.150, daily. Vitamin D Oral 4000 mg, BID. Diltiazem HCl Oral 240 mg, daily. Allergies: None. SOCIAL HISTORY Smoker- current status unknown. No alcohol use or drug use. No recent travel. Is a local resident. ADDITIONAL NOTES The nursing notes have been reviewed. PHYSICAL EXAM Vital Signs: 05/07/2017 20:45 BP: 164/74. HR: 145. RR: 17. O2 saturation: 100%. Temp: 98.2 F. Pain level now: 0/10. Oxygen saturation normal. Appearance: Alert. Oriented X3. No acute distress. Eyes: Pupils equal, round and reactive to light. Eyes normal inspection. ENT: Ears normal. Nose normal. Pharynx normal. Neck: Normal inspection. Neck supple. CVS: Normal heart rate and rhythm. Heart sounds normal. Pulses normal. Respiratory: No respiratory distress. Breath sounds normal. Chest nontender. No rales, rhonchi or wheezes. Abdomen: Soft and nontender. Bowel sounds normal. Skin: Skin warm and dry. Normal skin color. No rash. Normal skin turgor. Extremities: Extremities exhibit normal ROM. No lower extremity edema. LABS, X-RAYS, AND EKG EKG: EKG time: (2052). Atrial flutter (143). Normal QRS complex. Normal axis. Normal ST and T waves and QT. The study has been interpreted contemporaneously. The study has been independently viewed by me. The EKG appears to be a good tracing. Interpretation time: 2058. EKG #2: No acute process. No acute ischemia. Normal EKG. Normal sinus rhythm. Rate: 74. Normal P waves. Normal GUSTAVO. Normal QRS complex. Normal axis. The study has been interpreted contemporaneously. The study has been independently viewed by me. The EKG appears to be a good tracing. Chest X-ray: (PROCEDURE: XR CHEST 1 VIEW INDICATION: A FIB/FLUTTER TECHNIQUE: Portable AP view (2144 hours). COMPARISON: Compared to chest x-ray on 04/02/2017. FINDINGS: Allowing for overlying wires and electrodes, lungs are clear. Heart and mediastinum are normal. Thorax is normal. IMPRESSION: 1. Negative chest.). Laboratory Tests: UA-Culture if indicated: (DAWIT: 05/07/2017 22:15) ( MsgRcvd 05/07/2017 22:40) Final results Test Result Flag Units (Reference) URINE COLOR YELLOW URINE APPEARANCE CLEAR URINE GLUCOSE NEGATIVE (NEGATIVE) URINE BILIRUBIN NEGATIVE (NEGATIVE) URINE KETONE NEGATIVE (NEGATIVE) URINE SPECIFIC GRAVITY 1.020 (1.010-1.030) URINE PH 6.0 (5.0-8.0) URINE PROTEIN NEGATIVE (NEGATIVE) URINE UROBILINOGEN 0.2 EU/dL (0.2-1.0) URINE NITRITE NEGATIVE (NEGATIVE) URINE BLOOD NEGATIVE (NEGATIVE) URINE LEUK ESTERASE NEGATIVE (NEGATIVE) URINE RBC 0-1 rbc/hpf (0-1) URINE WBC 0-1 wbc/hpf (0-1) URINE EPITHELIAL CELLS 0-1 EPI/hpf (0-5) URINE BACTERIA NONE SEEN (NONE SEEN) URINE COMMENT CULT NOT INDICATED URINE CULTURES ARE SET-UP BASED ON THE FOLLOWING CRITERIA:POSITIVE NITRITEPOSITIVE LEUKOCYTE ESTERASEGREATER THAN 10 WHITE BLOOD CELLSMODERATE (2+) OR GREATER BACTERIA CBC w Diff: (DAWIT: 05/07/2017 20:53) ( [facility] 05/07/2017 21:32) Final results Test Result Flag Units (Reference) WHITE BLOOD COUNT 5.7 K/uL (4.5-11.5) RED BLOOD COUNT 4.19 M/uL (4.00-5.20) HEMOGLOBIN 13.0 gm/dL (12.0-16.0) HEMATOCRIT 37.8 % (36.0-46.0) MEAN CELL VOLUME 90 fL (80-100) MEAN CORPUSCULAR HGB 31 pg (26-34) MEAN CORPUSCULAR HGB CONC 35 g/dL (31-37) RED CELL DISTRIBUTION WIDTH 12.4 % (11.6-14.8) PLATELET COUNT 236 K/uL (150-400) NEUTROPHIL % 54.0 % (50-75) LYMPH % 31.8 % (25-40) MONO % 11.3 % (3-14) EOSINOPHIL % 2.1 % (0-4) BASOPHIL % 0.8 % (0-2) PT with INR: (DAWIT: 05/07/2017 21:35) ( [facility] 05/07/2017 21:58) Final results Test Result Flag Units (Reference) INR 1.1 (0.8-1.2) Low Intensity Therapy: INR 1.5-2.0 PT range 18.5-23.1Mod.Intensity Therapy: INR 2.0-3.0 PT range 23.1-31.5High Intensity Therapy: INR 2.5-3.5 PT range 27.4-35.5High Intensity Therapy 2: INR 3.0-4.0 PT range 31.5-39.3 APTT 35 H SECONDS (24-34) CMP: (DAWIT: 05/07/2017 20:53) ( [facility] 05/07/2017 22:17) Final results Test Result Flag Units (Reference) GLUCOSE 138 H mg/dL (70-110) BUN 28 H mg/dL (7-18) CREATININE 1.5 H mg/dL (0.6-1.3) Estimated GFR 36.49 mL/min Estimated GFR- 44.22 mL/min Note: Persistent reduction over 3 months in eGFR<60 mL/min/1.73 m2 defines CKD. Patients with eGFR values>=60 mL/min/1.73 m2 may also have CKD if evidence ofpersistent proteinuria. Additional information may be foundat www.kidney.org. SODIUM 141 mmol/L (136-145) POTASSIUM 4.2 mmol/L (3.5-5.1) CHLORIDE 104 mmol/L (98-107) CARBON DIOXIDE 24 mmol/L (21-32) CALCIUM 9.7 mg/dL (8.5-10.1) TOTAL PROTEIN 7.7 g/dL (6.4-8.2) ALBUMIN 4.0 g/dL (3.3-5.0) BILIRUBIN, TOTAL 0.4 mg/dL (0.0-1.0) ALKALINE PHOSPHATASE 76 U/L (46-116) AST (SGOT) 20 U/L (15-37) ALT (SGPT) 32 U/L (12-78) MAGNESIUM 1.9 mg/dL (1.8-2.4) THYROID STIMULATING HORMONE 4.220 H uIU/mL (0.30-3.74) . PROGRESS AND PROCEDURES Course of Care: the patient is a 72-year-old female presented for evaluation of rapid heart rate. Patient is noted to be in SVT on initial evaluation from EKG. Patient with mild hypertension in setting of hypotension. Patient is asymptomatic. By the time I was able to evaluate the patient at bedside, patient had spontaneously converted. Patient reports no pain or discomfortor other symptoms while this was occurring. We'll be fighting the patient for any causes for thepatient to go into SVT. Patient states that she is aware of the problem with her heart. Patient states that she wasgiven a referral by her handtools repairer to who she describes as a regulatory leader for a potential procedure to stop the SVT from occurring. Patient reports no other concerns at this time. The patient's workup was unremarkable for the findings above. No acute findings noted on patient's evaluation. Patient continues to be in no acute distress. No signs of shortness of breath or chest pain. Do not feel symptoms are caused by acute myocardial infarction, pulmonary embolism, pneumonia. patient is completely a symptomatically. Because of this, do not feel further workup in emergency department as warranted. Recommended patient follow-up with her doctor in regards to today's presentation. I discussed with the patient work. Emergency departmeincluding diagnosis, rhonchi, follow-up, and return precautions. All questions have been answered. The patient expressed understanding of these instructions and was agreeable to them. Disposition: Discharged. Condition: good. CLINICAL IMPRESSION 05/07/2017 22:45 BP: 127/64. HR: 85. RR: 18. O2 saturation: 99%. Pain level now: 0/10. 05/07/2017 22:25 BP: 129/67. HR: 76. RR: 17. O2 saturation: 99%. Pain level now: 0/10. Blood pressure normal. Oxygen saturation normal. Chronic atrial flutter with uncontrolled rate. (resolved). INSTRUCTIONS Warnings: GENERAL WARNINGS: Return or contact your physician immediately if your condition worsens or changes unexpectedly, if not improving as expected, or if other problems arise. SPECIFICALLY, return if you develop chest, neck, jaw, shoulder, arm, or back pain, difficulty breathing, a fluttering sensation in your chest, lightheadedness, fainting, excessive fatigue, or sudden sweating. Your Current Medications: CONTINUE TAKING THE FOLLOWING MEDICATIONS: Atorvastatin Calcium Oral : Tablet 10 mg, 1 tablet daily. Cartia XT Oral : Capsule Extended Release 24 Hour 180 mg, 1 capsule daily. Co Q 10 Oral : Capsule 100 mg, 1 capsule daily. Diltiazem HCl Oral : 240 mg daily. Eliquis Oral : 1 daily. Fenofibrate Oral : Tablet 160 mg, 1 tablet daily, prn. Fish Oil Oral : Capsule Delayed Release 1200 mg, 1 capsule BID. Flaxseed Oil Oral : 1400 mg daily. Lisinopril Oral : 10 mg daily. Multiple Vitamin Oral : daily. Premarin Vaginal : 0.150 daily. Vitamin D Oral : 4000 mg BID. Follow-up: Return to the emergency department as needed. Follow up with your doctor in three days. Reason for referral: recheck today's concerns. Summary of care provided to patient via paper. Follow up with doctor Your handtools repairer. Reason for referral: call to schedule an appointment in 3 - 5 days. Summary of care provided to patient via paper. Screening today revealed the patient's blood pressure to be in the normal range. The patient should follow up with a primary care provider for blood pressure management. Understanding of the discharge instructions verbalized by patient. (Electronically signed by Nacho Hameed Dr. 05/10/2017 15:35)
--- NOTE | 2017-05-10 15:35 | ED MED RECONCILIATION SUMMARY ---
Patient: INGRIS DURBIN Medication Reconciliation Report [facility] VisitID: [id number] [address] [place] [address] 72y, F Registration Date/Time: 05/07/2017 Weight: 90.7 kg Height/Length: 70 in. BMI: 28.7 ALLERGIES: None The patient's Home Medications are listed below: CONTINUE TAKING THE FOLLOWING MEDICATIONS: Atorvastatin Calcium Oral (10 mg) 1 tablet, daily Cartia XT Oral (180 mg) 1 capsule, daily Co Q 10 Oral (100 mg) 1 capsule, daily Diltiazem HCl Oral 240 mg, daily Eliquis Oral, 1 daily Fenofibrate Oral (160 mg) 1 tablet, daily Fish Oil Oral (1200 mg) 1 capsule, BID Flaxseed Oil Oral 1400 mg , daily Lisinopril Oral 10 mg, daily Multiple Vitamin Oral, daily Premarin Vaginal 0.150, daily Vitamin D Oral 4000 mg, BID The source(s) of the original Home Medication information: Not obtained. The following Medications were given to the patient in the Emergency Department: None. The following Medications were prescribed to the patient: None.
--- NOTE | 2017-05-10 15:35 | ED MAR SUMMARY ---
..... Medication Administration Record [facility] [address] [place], [place] [id number] Patient: JOEY DURBINJoseph Hunter Visit ID: [id number] 72y, F Weight: 90.7 kg Height/Length: 70 in BMI: 28.7 ALLERGIES: None
--- NOTE | 2017-05-10 15:35 | ED DISCHARGE INSTRUCTIONS ---
Patient: INGRIS DURBIN General Instructions [facility] VisitID: [id number] [place] [address] 72y, F Registration Date/Time: 05/07/2017 05/07/2017 22:45 BP: 127/64. HR: 85. RR: 18. O2 saturation: 99%. Pain level now: 0/10. 05/07/2017 22:25 BP: 129/67. HR: 76. RR: 17. O2 saturation: 99%. Pain level now: 0/10. Blood pressure normal. Oxygen saturation normal. Chronic atrial flutter with uncontrolled rate. (resolved). INSTRUCTIONS Warnings: GENERAL WARNINGS: Return or contact your physician immediately if your condition worsens or changes unexpectedly, if not improving as expected, or if other problems arise. SPECIFICALLY, return if you develop chest, neck, jaw, shoulder, arm, or back pain, difficulty breathing, a fluttering sensation in your chest, lightheadedness, fainting, excessive fatigue, or sudden sweating. Your Current Medications: CONTINUE TAKING THE FOLLOWING MEDICATIONS: Atorvastatin Calcium Oral : Tablet 10 mg, 1 tablet daily. Cartia XT Oral : Capsule Extended Release 24 Hour 180 mg, 1 capsule daily. Co Q 10 Oral : Capsule 100 mg, 1 capsule daily. Diltiazem HCl Oral : 240 mg daily. Eliquis Oral : 1 daily. Fenofibrate Oral : Tablet 160 mg, 1 tablet daily, prn. Fish Oil Oral : Capsule Delayed Release 1200 mg, 1 capsule BID. Flaxseed Oil Oral : 1400 mg daily. Lisinopril Oral : 10 mg daily. Multiple Vitamin Oral : daily. Premarin Vaginal : 0.150 daily. Vitamin D Oral : 4000 mg BID. Follow-up: Return to the emergency department as needed. Follow up with your doctor in three days. Reason for referral: recheck today's concerns. Summary of care provided to patient via paper. 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 Reason for referral: call to schedule an appointment in 3 - 5 days. Summary of care provided to patient via paper. Screening today revealed the patient's blood pressure to be in the normal range. The patient should follow up with a primary care provider for blood pressure management. Understanding of the discharge instructions verbalized by patient. ADDITIONAL INFORMATION Atrial Flutter Atrial flutteris a condition where the heart beats at a very rapid rate. It is due to a disturbance in the electrical pathways of the heart. It is a sign of heart disease or other health problems affecting the heart. The most common symptom ispalpitations. This is the feeling that your heart is fluttering or beating fast or hard. When the heart beats too fast, it does not pump blood very well. This can cause other symptoms such as anxiety, fatigue, shortness of breath, chest pain, dizziness or fainting. If this is your first episode of atrial flutter, and you have no heart or lung disease, you may never have another episode again. But in most cases, atrial flutter comes and goes, lasting from a few hours to a couple of days. Sometimes the atrial flutter does not ever go away and becomes chronic. Atrial flutter may be caused by disease of the heart or other conditions in the body that affect the heart: Coronary artery disease (arteriosclerosis) High blood pressure Disease of the heart valves Enlarged heart Atrial flutter can occur without heart disease due to: Overactive thyroid (hyperthyroid) Chronic lung disease (COPD, emphysema, bronchitis) Heavy alcohol use Cardiac stimulants (cocaine, amphetamines, diet pills, certain decongestant cold medicines, caffeine or nicotine) Infection Treating or removing these causes will improve success in the treatment of atrial flutter and reduce your risk of recurrence. Atrial flutter can alternate back and forth with another abnormal rhythm called atrial fibrillation. The risk of stroke is higher with these conditions. Proper treatment can reduce your risk. Home Care: Resume your usual activities as soon as you are feeling back to normal. If you smoke, stop smoking. Contact your doctor or a local stop-smoking program for help. Avoid stimulants (cocaine, amphetamines, diet pills, certain decongestant cold medicines, caffeine, or nicotine). If medicine is prescribed to prevent recurrence of atrial fibrillation, take it exactly as directed. Some medicines must be taken daily, not just when you have symptoms, in order to be effective. If you were prescribed warfarin (Coumadin) to reduce stroke risk, have your blood tested on a regular basis as advised by your doctor. This will ensure that the dose is correct for you. Follow Up With Your Doctor Or As Advised By Our Staff. Get Prompt Medical Attention If Any Of The Following Occur: Increasing shortness of breath Swellingof the legs Unexpected weight gain Chest pain or palpitations (the sense that your heart is fluttering, beating fast or hard) Fever of 100.4F (38C) or higher, or as directed by your healthcare provider Cough with dark-colored or bloody sputum (mucus) Pain, redness, or swelling in one leg Signs of stroke: Weakness or numbness of an arm or leg or one side of the face Difficulty with speech or vision Extreme drowsiness, confusion, dizziness or fainting Arrhythmia Electrical impulses cause the normal heart to beat 60 to 100 times a minute. These impulses come from a natural pacemaker deep inside the heart muscle. Each impulse causes the heart muscle to contract. This causes the blood to flow through the heart and out to the tissues and organs of your body. An arrhythmia is a change from the normal speed or pattern of these electrical impulses. This can cause the heart to beat too fast (tachycardia); or too slow (bradycardia); or in an unsteady pattern (irregular rhythm). Symptoms of arrhythmias Different people experience arrhythmias differently. Sometimes they may not have symptoms, but just notice a change in their pulse. Symptoms can include: Fluttering feeling in the chest Shortness of breath Chest pain or pressure Lightheadedness or dizziness Fainting or nearly fainting Palpitations Tiredness, fatigue, or weakness Causes of arrhythmias Arrhythmias are most often due to heart disease such as: Coronary artery disease (arteriosclerosis) Disease of the heart valves Enlarged heart High blood pressure Heart failure Other causes ofarrhythmia include: Certain medicines (such as asthma inhalers and decongestants) Some herbal supplements Cardiac stimulant drugs (such as cocaine, amphetamine, diet pills, certain decongestant cold medicines, caffeine, and nicotine) Excessive alcohol use Medical conditions such as thyroid disease, anemia, anxiety, and panic disorder Arrythmias can often be prevented. The cause and type of arrhythmia determines the best treatment. Sometimes your doctor may want to monitor your heart rate over a 24-hour period or longer. This can help identify the cause of your arrhythmia and find the best treatment. This can be done with a Holter monitor,a portable EKG recording device attached by wires to your chest. You can carry this with you as you perform your routine activities during the monitoring period. Home care Avoid cardiac stimulants (such as cocaine, amphetamine, diet pills, certain decongestant cold medicines, caffeine, and nicotine). If you smoke, stop smoking. Contact your doctor or a local stop-smoking program for help. Tell your doctor about any prescription, [id number] or herbal medicines you take. These may be affecting your heart rhythm. Follow-up care Follow up with your health care provider or as advised by our staff. If a Holter monitor has been recommended, contact the cardiologistyou have been referred toas soon as you canpick up the device. Other outpatient tests may also be arranged for you at that time. Call 911 This is the fastest and safest way to get to the emergency department. The paramedics can also start treatment on the way to the hospital, if needed. Don'twait until your symptoms are severe to call 911. Other reasons to call 911 besides chest pain include: Chest, shoulder, arm, neck, or back pain Shortness of breath Feeling lightheaded, faint, or dizzy Rapid heart beat Slower than usual heart rate compared to your normal Angina withweakness, dizziness, fainting, heavy sweating, nausea, or vomiting Extreme drowsiness, or confusion Weakness of an arm or leg or one side of the face Difficulty with speech or vision When to seek medical care Remember, things are not always like they are on TV. Sometimes it is not so obvious. You may only feel weak or just "not right." If it is not clear or if you have any doubt, call for advice. Seek help for chest pain, or it feels different from usual, even if your symptoms are mild. Do not drive yourself. Have someone else drive. If no one can drive you, call 911. If your doctor has given you medicines to take when you have symptoms, take them, but do not delay getting help while trying to find them. Do not delay. Fast diagnosis and treatment can prevent or limit the amount of heart damage during a heart attack or stroke. Do not go to your doctor's ofice or a clinic because they will not be able to provide all of the testing or treatment required for this condition. You have been given the following additional information: Atrial Flutter Arrhythmia, Unspecified (Electronically signed by Nacho Hameed Dr. 05/10/2017 15:35)
--- NOTE | 2017-05-10 15:35 | ED MED RECONCILIATION SUMMARY ---
Patient: INGRIS DURBIN Medication Reconciliation Report [facility] VisitID: [id number] [address] [place] [address] 72y, F Registration Date/Time: 05/07/2017 Weight: 90.7 kg Height/Length: 70 in. BMI: 28.7 ALLERGIES: None The patient's Home Medications are listed below: CONTINUE TAKING THE FOLLOWING MEDICATIONS: Atorvastatin Calcium Oral (10 mg) 1 tablet, daily Cartia XT Oral (180 mg) 1 capsule, daily Co Q 10 Oral (100 mg) 1 capsule, daily Diltiazem HCl Oral 240 mg, daily Eliquis Oral, 1 daily Fenofibrate Oral (160 mg) 1 tablet, daily Fish Oil Oral (1200 mg) 1 capsule, BID Flaxseed Oil Oral 1400 mg , daily Lisinopril Oral 10 mg, daily Multiple Vitamin Oral, daily Premarin Vaginal 0.150, daily Vitamin D Oral 4000 mg, BID The source(s) of the original Home Medication information: Not obtained. The following Medications were given to the patient in the Emergency Department: None. The following Medications were prescribed to the patient: None.
--- NOTE | 2017-05-10 15:35 | ED MAR SUMMARY ---
..... Medication Administration Record [facility] [address] [place], [place] [id number] Patient: JOEY DURBINJoseph Hunter Visit ID: [id number] 72y, F Weight: 90.7 kg Height/Length: 70 in BMI: 28.7 ALLERGIES: None
== END 2017-05-07 23:33 | disposition home or self-care (01) ==
LOC: ED SRH 20:41
DX: I48.92 Unspecified atrial flutter (principal); Z79.899 Other long term (current) drug therapy
CPT/HCPCS: 90004; 90074; 90100; 92720; 93140; 94001; 94060; 95059